=== PATIENT | male | born 1955 | race Caucasian/White ===

== ENCOUNTER 2017-12-17 15:16 | Outpatient (REF) | payer BC, SELFPAY ==
[2017-12-17 22:24] LABS: Cholesterol 209 mg/dL (50-200); HDL Cholesterol 52 mg/dL (40-60); LDL CHOLESTEROL 145 mg/dL (<100); Triglyceride 49 mg/dL (30-150)
[2017-12-17 22:28] LABS: Hemoglobin A1C 7.4 % (4.5-6.2)
== END 2017-12-17 15:17 ==
LOC: NCHCN 15:16
PROVIDERS: PCP Family Medicine; Visit Provider Family Medicine
DX: E11.65 Type 2 diabetes mellitus with hyperglycemia (principal); E78.5 Hyperlipidemia, unspecified
CPT/HCPCS: 80061; 83721; 83036

== ENCOUNTER 2018-07-20 10:25 | Outpatient (CLI) | payer BC, SELFPAY ==
[2018-07-20 16:39] LABS: CREATININE 1.08 mg/dL (0.70-1.30)
== END 2018-07-20 10:45 ==
PROVIDERS: PCP Family Medicine; Visit Provider Family Medicine
DX: E11.65 Type 2 diabetes mellitus with hyperglycemia (principal)
CPT/HCPCS: 36415; 82565

== ENCOUNTER 2018-07-24 01:37 | Outpatient (CLI) | payer BC, SELFPAY ==
[2018-07-24] MEDS: Omnipaque 350 MG/ML 100 ML BTL IV (14:13)
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
== END 2018-07-24 01:57 ==
PROVIDERS: PCP Family Medicine; Visit Provider Nurse Practitioner Family
DX: R51 Headache (principal); M54.2 Cervicalgia; Z87.828 Personal history of other (healed) physical injury and trauma
CPT/HCPCS: 70470; J3490

== ENCOUNTER 2018-08-20 08:30 | Outpatient (REF) | payer BC, SELFPAY ==
[2018-08-20 21:32] LABS: HCT 43.9 % (40.0-50.0); HGB 14.5 g/dL (13.5-17.5); Mean Corpuscular Hemoglobin 28.7 pg (27.0-33.0); Mean Corpuscular Volume 86.8 fL (80-95); Mean Platelet Volume 11.8 fL (8.0-11.0); Platelet Count 257 x1000/uL (130-400); RBC 5.06 m/cumm (4.50-6.00); RBC Distribution Width 13.3 % (11.8-14.1); White Blood Cell Count 9.61 k/cumm (4.4-10.8)
[2018-08-20 22:25] LABS: ALT 35 U/L (12-78); AST 18 U/L (15-37); Albumin 4.2 g/dL (3.4-5.0); Alkaline Phosphatase 103 U/L (46-116); Anion Gap 9.6 mmol/L (3-11); BUN 21 mg/dL (7-18); Bilirubin, Total 0.6 mg/dL (0.2-1.0); CO2 27.4 mmol/L (21.0-32.0); CREATININE 0.95 mg/dL (0.70-1.30); Calcium 8.9 mg/dL (8.5-10.1); Chloride 103 mmol/L (98-107); Glucose 167 mg/dL (70-100); Potassium 4.4 mmol/L (3.5-5.1); Sodium 140 mmol/L (136-145); TSH (W/Ref FT4) 2.09 uIU/mL (0.358-3.74); Total Protein 7.3 g/dL (6.4-8.2)
[2018-08-20 22:43] LABS: Cholesterol 235 mg/dL (50-200); HDL Cholesterol 54 mg/dL (40-60); LDL CHOLESTEROL 149 mg/dL (<100); Triglyceride 77 mg/dL (30-150)
[2018-08-20 23:03] LABS: Vitamin D 25 Total 7.8 ng/ml (30-100)
[2018-08-24 11:31] LABS: Testosterone, Total 243 ng/dL (240-950)
[2018-09-08 10:01] LABS: Rabies Antibody Endpoint 3.3 IU/mL
== END 2018-08-20 08:50 ==
LOC: NCHCN 08:30
PROVIDERS: PCP Family Medicine; Visit Provider Family Medicine
DX: E11.65 Type 2 diabetes mellitus with hyperglycemia (principal); I10 Essential (primary) hypertension; R53.83 Other fatigue; E66.9 Obesity, unspecified; M79.10 Myalgia, unspecified site; Z01.84 Encounter for antibody response examination
CPT/HCPCS: 80053; 80061; 82306; 83721; 84402; 84403; 85027; 86317; 84443

== ENCOUNTER 2018-09-22 12:03 | Outpatient (REF) | payer BC, SELFPAY ==
[2018-09-22 21:34] LABS: Hemoglobin A1C 7.6 % (4.5-6.2)
== END 2018-09-22 12:23 ==
LOC: LBN 12:03
PROVIDERS: PCP Family Medicine; Visit Provider Internal Medicine Endocrinology, Diabetes & Metabolism
DX: E11.65 Type 2 diabetes mellitus with hyperglycemia (principal); Z79.4 Long term (current) use of insulin
CPT/HCPCS: 83036

== ENCOUNTER 2018-10-12 11:46 | Outpatient (REF) | payer BC, SELFPAY ==
[2018-10-12 21:35] LABS: Vitamin D 25 Total 17.6 ng/ml (30-100)
[2018-10-12 21:45] LABS: Vitamin B12 387 pg/mL (193-986)
== END 2018-10-12 12:06 ==
LOC: NCHCN 11:46
PROVIDERS: PCP Family Medicine; Visit Provider Family Medicine
DX: R53.83 Other fatigue (principal); E55.9 Vitamin D deficiency, unspecified
CPT/HCPCS: 82306; 82607

== ENCOUNTER 2019-01-27 13:37 | Outpatient (REF) | payer BC, SELFPAY ==
[2019-01-27 22:30] LABS: Hemoglobin A1C 8.3 % (4.5-6.2)
[2019-01-27 23:01] LABS: Vitamin B12 562 pg/mL (193-986)
[2019-01-28 07:01] LABS: Vitamin D 25 Total 22.9 ng/ml (30-100)
== END 2019-01-27 13:57 ==
LOC: NCHCO 13:37
PROVIDERS: PCP Family Medicine; Visit Provider Family Medicine
DX: E53.8 Deficiency of other specified B group vitamins (principal); E55.9 Vitamin D deficiency, unspecified; E11.65 Type 2 diabetes mellitus with hyperglycemia
CPT/HCPCS: 82306; 82607; 83036

== ENCOUNTER 2019-02-26 08:57 | Outpatient (REF) | payer BC, SELFPAY ==
[2019-03-03 10:56] LABS: Testosterone, Free 5.54 ng/dL (3.67-13.9); Testosterone, Total 231 ng/dL (240-950)
== END 2019-02-26 09:17 ==
LOC: NCHCN 08:57
PROVIDERS: PCP Family Medicine; Visit Provider Family Medicine
DX: R53.83 Other fatigue (principal)
CPT/HCPCS: 84402; 84403

== ENCOUNTER 2019-03-16 09:27 | Outpatient (REF) | payer BC, SELFPAY ==
[2019-03-16 21:42] LABS: Hemoglobin A1C 8.8 % (4.5-6.2)
[2019-03-18 04:39] LABS: Vitamin D 25 Total 24.2 ng/ml (30-100)
[2019-03-19 14:49] LABS: Testosterone, Total 186 ng/dL (240-950)
== END 2019-03-16 09:47 ==
LOC: NCHCN 09:27
PROVIDERS: PCP Family Medicine; Visit Provider Family Medicine
DX: E11.65 Type 2 diabetes mellitus with hyperglycemia (principal); R53.83 Other fatigue; E29.1 Testicular hypofunction; E55.9 Vitamin D deficiency, unspecified
CPT/HCPCS: 82306; 84403; 83036

== ENCOUNTER 2019-06-15 08:40 | Outpatient (REF) | payer BC, SELFPAY ==
[2019-06-15 22:15] LABS: HCT 44.2 % (40.0-50.0); Mean Corp. HGB Concentration 33.9 g/dL (32.0-36.0); Mean Corpuscular Hemoglobin 28.7 pg (27.0-33.0); Mean Corpuscular Volume 84.5 fL (80-95); Mean Platelet Volume 11.5 fL (8.0-11.0); Platelet Count 280 x1000/uL (130-400); RBC 5.23 m/cumm (4.50-6.00); RBC Distribution Width 13.3 % (11.8-14.1); White Blood Cell Count 7.85 k/cumm (4.4-10.8)
[2019-06-15 22:29] LABS: ALT 33 U/L (16-63); AST 18 U/L (15-37); Albumin 3.9 g/dL (3.4-5.0); Alkaline Phosphatase 94 U/L (46-116); Anion Gap 9.6 mmol/L (3-11); BUN 18 mg/dL (7-18); Bilirubin, Total 0.6 mg/dL (0.2-1.0); CO2 26.4 mmol/L (21.0-32.0); Calculated LDL 139 mg/dL (<100); Chloride 107 mmol/L (98-107); Cholesterol 190 mg/dL (<200); Glucose 118 mg/dL (74-106); HDL Cholesterol 40 mg/dL (40-60); Potassium 4.2 mmol/L (3.5-5.1); Sodium 143 mmol/L (136-145); Total Protein 6.8 g/dL (6.4-8.2); Triglyceride 59 mg/dL (<150)
[2019-06-17 09:34] LABS: PSA, Screening 0.6 ng/mL (0.0-4.5)
[2019-06-18 08:17] LABS: Testosterone, Total 288 ng/dL (240-950)
== END 2019-06-15 09:00 ==
LOC: NCHCN 08:40
PROVIDERS: PCP Family Medicine; Visit Provider Family Medicine
DX: E11.65 Type 2 diabetes mellitus with hyperglycemia (principal); E78.5 Hyperlipidemia, unspecified; E29.1 Testicular hypofunction; R53.83 Other fatigue; M25.50 Pain in unspecified joint; Z12.5 Encounter for screening for malignant neoplasm of prostate
CPT/HCPCS: 80053; 80061; 84153; 84403; 85027

== ENCOUNTER 2019-07-01 12:15 | Outpatient (REF) | payer BC, SELFPAY ==
--- NOTE | 2019-07-01 10:00 | SKI_PTH ---
PATIENT: Dave Sims LOC: [facility] U#:[id number] AGE/SX: 64/M ROOM: RE07/01/[address]: Gayle Hinds : 1955 BED: DIS: 07/01/2019 SPEC #: [id number] RECD: 07/02/19 12:56 STATUS: JAISON KINCAID #: [id number] MARIE: 07/01/19 10:[address]: Gayle Hinds DEPT: Surgical Specimen RECD BY: Aissatou Sandoval Tissues: 1 - SKIN BIOPSY(SHAVE/PUNCH) Procedures: SKIN LEVEL 4 Comments: [id number]
== END 2019-07-01 12:35 ==
LOC: NCHCN 12:15
PROVIDERS: PCP Family Medicine; Visit Provider Family Medicine
DX: B07.9 Viral wart, unspecified (principal)
CPT/HCPCS: 88305

== ENCOUNTER 2019-09-06 14:43 | Outpatient (REF) | payer BC, SELFPAY ==
[2019-09-07 21:14] LABS: COVID-19 RT-PCR UVMMC Result Negative (Negative)
== END 2019-09-06 15:03 ==
LOC: NCHCN 14:43
PROVIDERS: PCP Family Medicine; Visit Provider Nurse Practitioner Family
DX: Z11.59 Encounter for screening for other viral diseases (principal)
CPT/HCPCS: U0003

== ENCOUNTER 2019-09-21 08:39 | Outpatient (REF) | payer BC, SELFPAY ==
[2019-09-21 21:02] LABS: Hemoglobin A1C 6.8 % (3.8-5.6)
[2019-09-21 21:44] LABS: Calculated LDL 164 mg/dL (<100); Cholesterol 231 mg/dL (<200); HDL Cholesterol 44 mg/dL (40-60); Triglyceride 119 mg/dL (<150)
[2019-09-23 11:03] LABS: Hepatitis C Ab w Rflx HCV PCR Negative (Negative)
[2019-09-23 11:17] LABS: HIV-1/2 Ag & Ab Screen Negative (Negative)
[2019-09-23 14:43] LABS: Vitamin D 25 Total 23.3 ng/ml (30-100)
[2019-09-25 08:25] LABS: Testosterone, Total 351 ng/dL (240-950)
[2019-10-07 11:02] LABS: Rabies Antibody Endpoint 2.5 IU/mL
== END 2019-09-21 08:59 ==
LOC: NCHCN 08:39
PROVIDERS: PCP Family Medicine; Visit Provider Family Medicine
DX: Z11.4 Encounter for screening for human immunodeficiency virus [HIV] (principal); E55.9 Vitamin D deficiency, unspecified; E11.65 Type 2 diabetes mellitus with hyperglycemia; Z20.3 Contact with and (suspected) exposure to rabies; E29.1 Testicular hypofunction; N41.9 Inflammatory disease of prostate, unspecified; E78.5 Hyperlipidemia, unspecified; L98.9 Disorder of the skin and subcutaneous tissue, unspecified
CPT/HCPCS: 80061; 82306; 84403; 86317; 86803; 87389; 83036

== ENCOUNTER 2019-10-21 05:09 | Outpatient (CLI) | payer BC, SELFPAY ==
--- NOTE | 2019-10-21 15:00 | NS.NUTBLAN_ITS ---
Dave is referred to Nutritional counseling for Obesity, HTN, HLD and Hx Uncontrolled DM2. He had recent sig beneficial weight loss adhering to Keto diet. He is currently 164% IBW w/ BMI 39.07 indicating morbid obesity. Dave has had some concerns about elevated FBG levels, increased insulin doses and is looking for more information on the Keto diet. Most recent A1C of 6.8 ( 10/01/19) was an improvement related to diet choices. He states that he is unable to do physical activities r/t knee and lower back issues for which he is getting tx. He was under the care of an hardness inspector and CDE at [facility] but became discouraged when insulin dose was increased. He is currently on 75 units Lantus and has been adjusting his novolog according to BG levels. This RD helped Dave take BG reading two hrs post prandial which was 154 ml/dl. He stated he had a tuna sandwich for lunch and glass of water. Intervention: Educated Dave on a review of CHO counting . Provided take home literature on menu choices and label reading. Reviewed risks and benefits of ketogenic diet particularly r/t potential for DKA. Discussed several options to help w/ diet choices including [employer]/cals phone conrado and DASH diet. Reviewed ideal BG levels and explained the concept of time in range. Discussed having a small snack at bedtime to avoid glycogen conversion during sleep to promote favorable FBG upon awakening. Recommended small amounts of CHO (< 60g) w/ pro at each meal and increase vegetable variety and intake. Provided food record and recommended he take BG levels TID. He is a good candidate for CGM as he stated he does not take his BG levels regularly. Monitor and Evaluation: Dave will return to [facility] for follow up appointment to review food record and BG hx on 18 November. Consulted with local CDE to validate his current insulin regimen which is appropriate at this time.
== END 2019-10-21 05:29 ==
PROVIDERS: PCP Family Medicine; Visit Provider Family Medicine
DX: E66.01 Morbid (severe) obesity due to excess calories (principal); E11.9 Type 2 diabetes mellitus without complications; Z79.4 Long term (current) use of insulin; I10 Essential (primary) hypertension; E78.5 Hyperlipidemia, unspecified; Z71.3 Dietary counseling and surveillance
CPT/HCPCS: 97802

== ENCOUNTER 2019-11-28 19:25 | Emergency (ER) | payer BC, SELFPAY ==
[2019-11-28] VITALS (20 sets, daily range): BP systolic 132–166; BP diastolic 62–87; PULSE 65–91; RESP 14–26; TEMP 36.8; O2SAT 94–96
[2019-11-28] MEDS: diphenhydrAMINE 50 MG/ML VIAL (19:32)
[2019-11-28] MEDS: methylPREDNISolone SUCC 125 MG VIAL (19:33)
[2019-11-28] MEDS: Ondansetron 4 MG/2 ML VIAL IVP (20:06)
[2019-11-28] MEDS: Normal Saline 1,000 ML 1000 ML IV (20:07)
[2019-11-28] MEDS: FAMOTIDINE 20 MG/50 ML BAG 100 MG (20:07)
--- NOTE | 2019-11-28 22:12 | W.ED.GENAD ---
Discharge Plan Disposition Patient Disposition: HOME Condition: Stable Discharge Details Chief Complaint: Allergic Clinical Impression: Allergic reaction to bee sting Primary Care Provider: Gayle Hinds ED Provider: Ezekiel Eugene Home Meds and New Rx's Prescriptions: New prednisone 20 mg tablet 60 mg PO DAILY 5 Days Qty: 15 RF: 0 epinephrine [EpiPen 2-Prem] 0.3 mg/0.3 mL auto-injector 0.3 mg IM ONCE Qty: 1 RF: 0 Continued Lantus U-100 Insulin 100 unit/mL Solution 80 unit SUBCUT DAILY RF: 0 insulin aspart U-100 [Novolog Flexpen U-100 Insulin] 100 unit/mL (3 mL) Insulin Pen 45 unit SUBCUT DAILY RF: 0 aspirin 81 mg Tablet,Chewable 81 mg PO DAILY RF: 0 Discharge Instructions Instructions: Insect Bite or Sting (ED), General Allergic Reaction (ED) Additional Instructions: Prednisone as directed. [id number] Pepcid and Benadryl as directed for the next 5 days. Please watch for new or worsening symptoms and return to the ER for any concerns. I do recommend you contact your primary care provider tomorrow for prompt outpatient reevaluation. I am providing you with a prescription for EpiPen, we discussed the appropriate use of an EpiPen and the importance of still seeking medical attention if you use the EpiPen. Medical Decision Making 64-year-old gentleman with history of diabetes, presents for evaluation status post bee sting to his left hand within the last hour. He does have hives but no signs of airway compromise, angioedema, etc. Will initiate IV therapy normal saline, Solu-Medrol, Pepcid, Benadryl. I do not believe that epinephrine is indicated at this time. I did discuss my plan with Dr. Torre. Patient was observed in the ER for over 3 hours. Each subsequent evaluation he reports feeling improvement. By the time he was discharged he had no rash to his legs, arms. He had a small area across his chest and most of it was on his back from initial presentation had resolved. Now only very mild hives-erythema. He was able to ambulate to the restroom multiple times. He tolerated p.o. intake. There was no evidence of decompensation. Discussed our options. I will provide steroid therapy prescription, he will take [id number] Pepcid and Benadryl. I will also give him a prescription for an EpiPen. We discussed how and when to use an EpiPen. Patient has no additional questions or concerns. Medical Records Medical records reviewed: Yes I reviewed the patient's medical records. HPI General Mode of arrival: ambulatory. Date/Time Provider Initiated Documentation: 11/28/19 19:29. Limitations to Documentation: no limitations. Information obtained by: patient. HPI Narrative: 64-year-old gentleman with a history of diabetes presents to the ER having been stung by a hornet roughly 1 hour ago on the left hand. He reports that within the next half an hour he began having itching body wide associated with a red raised rash across most of his body. He denies any difficulty speaking or breathing. He denies any swelling of his lips, tongue, throat. He does feel as though his lips are tingling. He has never had a reaction like this before. He denies any chest pain. He reports allergies to iodine, penicillins, shellfish. Never had a reaction of this to a hornet or bee sting in the past. He reports that his ears feel warm and tight. Related Data Home Medications Medication Instructions Recorded Confirmed Lantus U-100 Insulin 80 unit SUBCUT DAILY 11/28/19 11/28/19 aspirin 81 mg PO DAILY 11/28/19 11/28/19 epinephrine [EpiPen 2-Prem] 0.3 mg IM ONCE #1 each 11/28/19 insulin aspart U-100 [Novolog 45 unit SUBCUT DAILY 11/28/19 11/28/19 Flexpen U-100 Insulin] prednisone 60 mg PO DAILY 5 Days #15 tab 11/28/19 Previous Rx's Medication Instructions Recorded epinephrine [EpiPen 2-Prem] 0.3 mg IM ONCE #1 each 11/28/19 prednisone 60 mg PO DAILY 5 Days #15 tab 11/28/19 Allergies Allergy/AdvReac Type Severity Reaction Status Date / Time iodine Allergy Unverified 11/28/19 19:29 Penicillins Allergy Unverified 11/28/19 19:29 shellfish derived Allergy Unverified 11/28/19 19:29 General Stated Complaint: Allergic KAZ: 3 Review of Systems Constitutional Constitutional: Denies fever(s) and Denies weakness Eyes Eyes: Denies itchy eyes ENT Ears, Nose, Mouth, and Throat: Denies lip swelling, Denies throat swelling and Denies tongue swelling Cardiovascular Cardiovascular: Denies chest pain and Denies dyspnea Respiratory Respiratory: Denies cough, Denies dyspnea and Denies wheezing Gastrointestinal Gastrointestinal: Denies abdominal pain, Reports nausea and Denies vomiting Musculoskeletal Musculoskeletal: Denies back pain, Denies stiffness and Reports tingling Integumentary/Breasts Skin/Breast: Reports rash Neurologic Neurologic: Reports tingling and Denies weakness Allergic/Immunologic Allergic/Immunologic: Reports urticaria, Denies itchy eyes, Denies lip swelling, Denies throat swelling, Denies tongue swelling and Denies wheezing [facility] Social History Smoking/Tobacco Use Status: Never Alcohol Intake: current Alcohol Intake frequency: 3 or more drinks per day Drug use: Never Substance use type: does not use Do you feel safe at home: Yes Do you feel safe in your relationship?: Yes Exam Const General: cooperative, healthy appearing, comfortable and no acute distress Orientation: alert, awake and oriented x3 HENMT Head: normal to inspection, normocephalic and atraumatic Face and sinus: normal facial exam Mouth: oral mucosae normal and moist mucous membranes Throat: posterior oropharynx normal Eyes Conjunctivae: conjunctivae normal Sclera: sclerae normal Neck Neck: normal visual inspection, full ROM, trachea midline, supple and nontender Chest Chest: normal palpation of entire chest wall Resp Effort & Inspection: normal respiratory effort and able to speak in complete sentences Auscultation: clear to auscultation bilaterally Cardio Rate: regular rate Rhythm: regular rhythm GI Palpation: soft and nontender Back/Spine/Pelvis Back: No back tenderness Skin Other: Patchy hives over his entire body sparing the face. Concentration is greater across the torso, then the upper extremities, then the lower extremities. Neuro General: patient alert, patient awake, patient oriented x3, moves all extremities and no focal motor deficits Cranial Nerves: CN's II-XI intact bilaterally Cognition: normal cognition Speech: speech normal Gait: normal gait Motor: muscle tone normal throughout and strength 5/5 throughout Sensory Exam: no sensory deficits noted Extrem Other: Puncture-bee sting to left hand, no stinger in place. Neuro, vascular, tendon intact. Otherwise unremarkable Psych Appearance: grossly normal Mental Status: mental status grossly normal Course Vital Signs Vital signs: Vital Signs Temperature 36.8 C 11/28/19 19:28 Pulse 91 H 11/28/19 19:28 Respiratory Rate 26 H 11/28/19 19:28 Blood Pressure 166/87 H 11/28/19 19:28 Pulse Oximetry 94 L 11/28/19 19:28 Temperature 36.8 C 11/28/19 19:28 Temperature Source Skin 11/28/19 19:28 Pulse 66 11/28/19 20:32 Pulse 72 11/28/19 20:32 Respiratory Rate 22 11/28/19 20:32 Respiratory Effort Non-Labored 11/28/19 19:33 Respiratory Pattern Normal 11/28/19 19:33 Blood Pressure 140/62 11/28/19 20:17 Blood Pressure Mean 98 11/28/19 20:32 Blood Pressure Position Sitting 11/28/19 19:28 Pulse Oximetry 96 11/28/19 20:20 Oxygen Delivery Method Room Air 11/28/19 19:28 Oxygen Flow Rate 0 11/28/19 19:28 Pain Level 8 11/28/19 19:28
== END 2019-11-28 22:40 | disposition home or self-care (01) ==
PROVIDERS: Emergency Provider Physician Assistant; PCP Family Medicine
DX: T63.451A Toxic effect of venom of hornets, accidental (unintentional), initial encounter (principal); L50.0 Allergic urticaria; Z79.4 Long term (current) use of insulin; E11.9 Type 2 diabetes mellitus without complications
CPT/HCPCS: 96361; 96365; 96375; 99284; J1200; J2405; J2930

== ENCOUNTER 2019-12-04 13:15 | Emergency (ER) | payer BC, SELFPAY ==
[2019-12-04 13:22] VITALS: BP 147/70; PULSE 88; RESP 18; TEMP 36.4; O2SAT 96
--- NOTE | 2019-12-04 13:28 | ED.GENADUL_ITS ---
Discharge Plan Disposition Patient Disposition: HOME Condition: Stable Discharge Details Chief Complaint: Allergic Clinical Impression: Bee sting Primary Care Provider: Gayle Hinds ED Provider: Ezekiel Eugene Home Meds and New Rx's Prescriptions: Continued Lantus U-100 Insulin 100 unit/mL Solution 80 unit SUBCUT DAILY RF: 0 insulin aspart U-100 [Novolog Flexpen U-100 Insulin] 100 unit/mL (3 mL) Insulin Pen 45 unit SUBCUT DAILY RF: 0 aspirin 81 mg Tablet,Chewable 81 mg PO DAILY RF: 0 epinephrine [EpiPen 2-Prem] 0.3 mg/0.3 mL auto-injector 0.3 mg IM ONCE Qty: 1 RF: 0 Discontinued prednisone 20 mg tablet 60 mg PO DAILY RF: 0 Discharge Instructions Instructions: Insect Bite or Sting (ED) Additional Instructions: At this time it does not appear as though you are having a serious allergic reaction. Simply a local reaction to the finger at the site of the sting. No indication for additional steroid therapy. I do recommending resting, elevating, cool compresses every 2 hours for 20 minutes. You may take [id number]-zeo-[id number] Benadryl and Pepcid as directed for the next 24-48 hours. Please watch for new or worsening symptoms and return to the ER for any concerns. Discharge Data Discharge Date/Time-TO BE ENTERED AT DEPARTURE: 12/04/19 15:12 Medical Decision Making 64-year-old gentleman presents with a right index finger bee sting that occurred around 1215 today. He took 2 Benadryl and a single Pepcid. Reports localized discomfort but no systemic reaction whatsoever. He just finished a burst dose of steroids for a bee sting that occurred on 11-28-19. We discussed our options. He is a diabetic, was recently on steroids, I would like to avoid prolonged exposure if at all possible. Patient is agreeable to being observed in the ER and his symptoms are to worsen we will have to initiate further therapy, otherwise the Benadryl and Pepcid that he is already taken may be sufficient. Absolutely no symptoms of systemic reaction or angioedema Patient was observed in the ER for over 2 hours. Upon each subsequent reevaluation he reported no new or worsening symptoms. Mild local discomfort at the site of the sting otherwise denies body wide rash, numbness, tingling, weakness, chest pain, shortness of breath, lip, tongue, mouth swelling. After 2 hours in the ER he was requesting discharge, I do believe this to be perfectly reasonable at this time. He does have an EpiPen at home already prescribed to him. We will not extend his steroid therapy, but he will take [id number]-[id number] Benadryl and Pepcid. HPI General Mode of arrival: ambulatory . Date/Time Provider Initiated Documentation: 12/04/19 13:28 . Limitations to Documentation: no limitations . Information obtained by: patient . HPI Narrative: This is a 64-year-old gentleman with a history of diabetes presenting for a bee sting that occurred around 1215 today at the tip of his right index finger. He reports mild localized discomfort otherwise asymptomatic. Of note, he was seen in the ER 6 days ago for a bee sting and he had more significant symptoms at that time requiring IV fluid, Pepcid, Benadryl, steroids. He did not need epinephrine. He had finished his burst of steroids yesterday. He took 2 Benadryl and a single Pepcid as soon as he was stung today. He denies any headache, chest pain, shortness of breath, wheezing, swelling of his mouth, lips, tongue. He denies body wide rash. He denies any pruritus. He reports that he is coming to the ER today given his severe reaction earlier in the week. Related Data Home Medications Medication Instructions Recorded Confirmed Lantus U-100 Insulin 80 unit SUBCUT DAILY 11/28/19 12/04/19 aspirin 81 mg PO DAILY 11/28/19 12/04/19 epinephrine [EpiPen 2-Prem] 0.3 mg IM ONCE #1 each 11/28/19 12/04/19 insulin aspart U-100 [Novolog 45 unit SUBCUT DAILY 11/28/19 12/04/19 Flexpen U-100 Insulin] Previous Rx's Medication Instructions Recorded epinephrine [EpiPen 2-Prem] 0.3 mg IM ONCE #1 each 11/28/19 Allergies Allergy/AdvReac Type Severity Reaction Status Date / Time bee venom protein (honey bee) Allergy Unverified 12/04/19 13:29 iodine Allergy Unverified 11/28/19 19:29 Penicillins Allergy Unverified 11/28/19 19:29 shellfish derived Allergy Unverified 11/28/19 19:29 General Stated Complaint: Allergic KAZ: 3 Review of Systems Constitutional Constitutional: Denies fatigue, Denies headache(s) and Denies weakness Eyes Eyes: Denies itchy eyes ENT Ears, Nose, Mouth, and Throat: Denies headache(s) and Denies throat swelling Cardiovascular Cardiovascular: Denies chest pain and Denies dyspnea Respiratory Respiratory: Denies chest congestion, Denies dyspnea and Denies wheezing Gastrointestinal Gastrointestinal: Denies abdominal pain, Denies nausea and Denies vomiting Musculoskeletal Musculoskeletal: Denies arthralgias, Denies numbness and Denies tingling Integumentary/Breasts Skin/Breast: Denies rash Neurologic Neurologic: Denies headache(s), Denies numbness, Denies tingling and Denies weakness Endocrine Endocrine: Denies fatigue Allergic/Immunologic Allergic/Immunologic: Denies itchy eyes, Denies throat swelling and Denies wheezing [facility] Social History Smoking/Tobacco Use Status: Never Alcohol Intake: current Alcohol Intake frequency: 3 or more drinks per day Drug use: Never Substance use type: does not use Do you feel safe at home: Yes Do you feel safe in your relationship?: Yes Exam Const General: cooperative, healthy appearing, comfortable and no acute distress Orientation: alert, awake and oriented x3 HENMT Head: normal to inspection, normocephalic and atraumatic Face and sinus: normal facial exam Mouth: moist mucous membranes Throat: posterior oropharynx normal Eyes Conjunctivae: conjunctivae normal Sclera: sclerae normal Neck Neck: normal visual inspection, full ROM, trachea midline and supple Resp Effort & Inspection: normal respiratory effort and able to speak in complete sentences Auscultation: clear to auscultation bilaterally Cardio Rate: regular rate Rhythm: regular rhythm GI Palpation: soft and nontender Skin General skin exam: no rashes or lesions noted Neuro General: patient alert, patient awake, patient oriented x3, moves all extremities and no focal motor deficits Cranial Nerves: CN's II-XI intact bilaterally Cognition: normal cognition Speech: speech normal Gait: normal gait Motor: muscle tone normal throughout and strength 5/5 throughout Sensory Exam: no sensory deficits noted Extrem Left upper extremity: normal to inspection, full ROM and normal capillary refill Hand/finger images: 1. Puncture wound without notable stinger. Mild tenderness, swelling, erythema. Full range of motion. Neuro, vascular, tendon intact Psych Appearance: grossly normal Mental Status: mental status grossly normal Course Vital Signs Vital signs: Vital Signs Temperature 36.4 C L 12/04/19 13:22 Pulse 88 12/04/19 13:22 Respiratory Rate 18 12/04/19 13:22 Blood Pressure 147/70 H 12/04/19 13:22 Pulse Oximetry 96 12/04/19 13:22 Temperature 36.4 C L 12/04/19 13:22 Temperature Source Temporal Artery Scan 12/04/19 13:22 Pulse 88 12/04/19 13:22 Respiratory Rate 18 12/04/19 13:22 Blood Pressure 147/70 H 12/04/19 13:22 Blood Pressure Position Supine 12/04/19 13:22 Pulse Oximetry 96 12/04/19 13:22 Oxygen Delivery Method Room Air 12/04/19 13:22 Oxygen Flow Rate 0 12/04/19 13:22
[2019-12-04 14:28] VITALS: BP 145/52; PULSE 70; RESP 18; TEMP 36.4; O2SAT 96
[2019-12-04 15:10] VITALS: BP 139/85; PULSE 68; RESP 18; O2SAT 94
== END 2019-12-04 15:12 | disposition home or self-care (01) ==
PROVIDERS: Emergency Provider Physician Assistant; PCP Family Medicine
DX: T63.441A Toxic effect of venom of bees, accidental (unintentional), initial encounter (principal); M79.644 Pain in right finger(s); E11.9 Type 2 diabetes mellitus without complications; Z79.4 Long term (current) use of insulin
CPT/HCPCS: 99282; 99283

== ENCOUNTER 2019-12-14 08:29 | Outpatient (REF) | payer BC, SELFPAY ==
[2019-12-14 21:39] LABS: HCT 44.3 % (40.0-50.0); HGB 14.4 g/dL (13.5-17.5); MCH 28.7 pg (27.0-33.0); MCHC 32.5 % (32.0-36.0); MCV 88.4 fL (80-95); MPV 12.1 fL (8.0-11.0); Platelet Count 232 10^3/uL (130-400); RBC 5.01 10^6/uL (4.36-5.78); RDW 12.8 % (11.8-14.1); RDW-SD 41.6 fL; WBC 9.53 10^3/uL (4.4-10.8)
[2019-12-14 22:19] LABS: ALT 30 U/L (16-63); AST 15 U/L (15-37); Albumin 3.6 g/dL (3.4-5.0); Alkaline Phosphatase 96 U/L (46-116); Anion Gap 9.5 mmol/L (3-11); BUN 18 mg/dL (7-18); Bilirubin, Total 0.5 mg/dL (0.2-1.0); CO2 26.5 mmol/L (21.0-32.0); CREATININE 0.79 mg/dL (0.70-1.30); Calcium 8.8 mg/dL (8.5-10.1); Calculated LDL 170 mg/dL (<100); Chloride 106 mmol/L (98-107); Cholesterol 240 mg/dL (<200); Glucose 182 mg/dL (74-106); HDL Cholesterol 46 mg/dL (40-60); Potassium 4.4 mmol/L (3.5-5.1); Sodium 142 mmol/L (136-145); Total Protein 6.5 g/dL (6.4-8.2); Triglyceride 121 mg/dL (<150)
[2019-12-14 22:24] LABS: Hemoglobin A1C 7.9 % (3.8-5.6)
[2019-12-16 09:20] LABS: PSA, Screening 0.6 ng/mL (0.0-4.5)
[2019-12-19 16:21] LABS: Testosterone, Total 237 ng/dL (240-950)
== END 2019-12-14 08:49 ==
LOC: NCHCN 08:29
PROVIDERS: PCP Family Medicine; Visit Provider Family Medicine
DX: E11.9 Type 2 diabetes mellitus without complications (principal); E53.8 Deficiency of other specified B group vitamins; R53.83 Other fatigue; E78.5 Hyperlipidemia, unspecified; E55.9 Vitamin D deficiency, unspecified; E29.1 Testicular hypofunction; Z12.5 Encounter for screening for malignant neoplasm of prostate; I10 Essential (primary) hypertension
CPT/HCPCS: 80053; 80061; 84153; 84403; 85027; 83036

== ENCOUNTER 2019-12-21 16:51 | Outpatient (REF) | payer BC, SELFPAY ==
[2019-12-23 04:50] LABS: Vitamin D 25 Total 21.8 ng/ml (30-100)
== END 2019-12-21 17:11 ==
LOC: NCHCN 16:51
PROVIDERS: PCP Family Medicine; Visit Provider Family Medicine
DX: F32.9 Major depressive disorder, single episode, unspecified (principal); E55.9 Vitamin D deficiency, unspecified
CPT/HCPCS: 82306

== ENCOUNTER 2020-04-19 09:23 | Outpatient (REF) | payer BC, SELFPAY ==
[2020-04-19 22:45] LABS: Hemoglobin A1C 7.9 % (<5.7)
[2020-04-19 22:59] LABS: Calculated LDL 163 mg/dL (<100); Cholesterol 222 mg/dL (<200); HDL Cholesterol 46 mg/dL (40-60); Triglyceride 69 mg/dL (<150)
[2020-04-20 05:05] LABS: Vitamin D 25 Total 63.3 ng/ml (30-100)
[2020-04-24 15:13] LABS: Testosterone, Free 24.2 ng/dL (3.67-13.9); Testosterone, Total 655 ng/dL (240-950)
== END 2020-04-19 09:43 ==
LOC: NCHCN 09:23
PROVIDERS: PCP Family Medicine; Visit Provider Family Medicine
DX: E78.5 Hyperlipidemia, unspecified (principal); E11.9 Type 2 diabetes mellitus without complications
CPT/HCPCS: 80061; 82306; 84402; 84403; 83036

== ENCOUNTER 2020-08-31 17:02 | Outpatient (REF) | payer BC, SELFPAY ==
[2020-08-31 21:30] LABS: COMMENT (LAB VIEW ONLY) 47.65 mg/dL; Microalb ug/mg Crea 72.2 ug/mg Cr
== END 2020-08-31 17:03 | disposition home or self-care (01) ==
LOC: NCHCN 17:02
PROVIDERS: PCP Family Medicine; Visit Provider Family Medicine
DX: E11.65 Type 2 diabetes mellitus with hyperglycemia (principal)
CPT/HCPCS: 82043; 82570

== ENCOUNTER 2020-10-03 15:26 | Outpatient (CLI) | payer BC, SELFPAY ==
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
== END 2020-10-03 15:46 ==
PROVIDERS: PCP Family Medicine; Visit Provider Family Medicine
DX: M54.2 Cervicalgia (principal); R51.9 Headache, unspecified
CPT/HCPCS: 72050

== ENCOUNTER 2020-11-17 09:49 | Day surgery (SDC) | payer BC, SELFPAY ==
[2020-11-17 10:10] VITALS: BP 158/88; PULSE 74; RESP 16; TEMP 36.8; O2SAT 99
[2020-11-17] MEDS: Tropicam./Phenyleph. (1/2.5%) 5 ML BTL OS ×3 (10:31→10:41)
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
[2020-11-17 11:57] VITALS: BMI 40.1
[2020-11-17] MEDS: Balanced Salt Soln.-PLUS 500 ML BAG (12:36)
[2020-11-17] MEDS: Tetracaine 0.5% 4 ML BTL OS (12:36)
[2020-11-17] MEDS: Duovisc Viscoelastic System EACH 1 EACH (12:37)
[2020-11-17] MEDS: Lidocaine 1% Pres-Free 5 ML VIAL (12:37)
[2020-11-17] MEDS: Lidocaine 2% Jelly 6 ML SYR (12:38)
[2020-11-17] MEDS: Povidone-Iodine Ophth 30 ML BTL (12:39)
[2020-11-17 12:51] VITALS: BP 172/100; PULSE 75; RESP 16; TEMP 36.7; O2SAT 98
--- NOTE | 2020-11-17 12:52 | W.PM.DSUDISC ---
Discharge Plan Disposition Patient Disposition: HOME Condition: Good Discharge Details Attending Provider: Moris Raman Primary Care Provider: Gayle Hinds Home Meds and New Rx's Prescriptions: No Action clotrimazole-betamethasone [Lotrisone] 1-0.05 % Cream 1 applic TOPICAL BID PRNRF: 0 metoprolol tartrate 50 mg tablet 50 mg PO BID RF: 0 testosterone cypionate 200 mg/mL oil 50 mg IM DIRECTED RF: 0 albuterol sulfate 90 mcg/actuation HFA aerosol inhaler 2 puff INHALATION DIRECTED RF: 0 Levemir FlexTouch U-100 Insuln 100 unit/mL (3 mL) insulin pen 96 unit SUBCUT BID RF: 0 Trulicity 1.5 mg/0.5 mL pen injector 1.5 mg SUBCUT DIRECTED RF: 0 ergocalciferol (vitamin D2) 1,250 mcg (50,000 unit) capsule RF: 0 insulin aspart U-100 [Novolog Flexpen U-100 Insulin] 100 unit/mL (3 mL) Insulin Pen 45 unit SUBCUT DIRECTED RF: 0 aspirin 81 mg Tablet,Chewable 81 mg PO DAILY RF: 0 epinephrine [EpiPen 2-Prem] 0.3 mg/0.3 mL auto-injector 0.3 mg IM ONCE Qty: 1 RF: 0 Discharge Instructions Stand Alone Forms: Post-op Topical Cataract, Press Ganey (DSU) Discharge Orders Discharge Orders: Discharge Order (Routine); Ordered 11/17/20 Ordered By: Moris Raman DS: Diagnosis Discharge Diagnosis (1) Posterior subcapsular age-related cataract of left eye: Status: Resolved (2) Cortical cataract of left eye: Status: Resolved (3) Nuclear sclerotic cataract of left eye: Status: Resolved
--- NOTE | 2020-11-17 12:54 | ROE_ITS ---
Date of service: 11/17/20 Time of Service: 12:54 Operative Note Operative Note DATE OF PROCEDURE: 11/17/20 PRE-OP DIAGNOSIS: Nuclear/cortical/posterior subcapsular cataract, left eye POST-OP DIAGNOSIS: same PROCEDURE: Cataract extraction using phacoemulsification with intraocular lens implant, left eye SURGEON: Moris Raman ANESTHESIA TYPE: Local By Surgeon and MAC Refer to Anesthesia Record PATHOLOGY: none sent COMPLICATIONS: None Patient was transported to: same day Patient's condition: stable Implants: Carlo and Carlo / [employer] Tecnis [id number] Indications: Progressive decreased vision due to cataract, left eye, with poor red reflex Procedure Description: CATARACT SURGERY OPERATIVE REPORT PREOPERATIVE DIAGNOSIS: 1. Nuclear/cortical/posterior subcapsular cataract, left eye POSTOPERATIVE DIAGNOSIS: Same OPERATION: 1. Cataract extraction using phacoemulsification with posterior chamber intraocular lens implant, left eye. IOL: IOL Bonding Equipment Operator/Model: Carlo & Carlo / MARY Tecnis [id number] IOL Power: + 22.5 diopters IOL Serial Number: [id number] Optic Diameter: 6.0 mm Haptic/Overall Diameter: 13.0 mm PHACO INFO: Corona Naviswissurion Vision System with OZil and Active Fluidics Cumulative Dispersed Energy (CDE): 6.86 seconds SURGEON: Moris Raman MD, LJ ANESTHESIA: Monitored A [facility] (MAC), with local sub-tenon's anesthetic infiltration COMPLICATIONS: None SPECIMENS: None INDICATIONS FOR PROCEDURE: The patient is a 65-year-old gentleman with history of diminished visual acuity in both eyes secondary to the development of bilateral nuclear/cortical/posterior subcapsular cataract. He has become increasingly symptomatic and desires cataract surgery and attempt to improve and maximize his vision. PROCEDURE: The correct surgical eye was identified and marked as the left eye and the pupil was dilated in the preoperative area using mydriatics and cycloplegics. The dilated pupil size was 7.0 mm. The patient was brought to the operating room where cardiopulmonary monitoring was instituted and surgical time-out was performed, confirming the correct operative eye and IOL power. Topical anesthesia was administered and ophthalmic povidone-iodine 5% was instilled into the conjunctival fornices. Lidocaine gel was applied to the cornea and the melba-ocular area was prepped with Betadine 10% solution and draped in the usual sterile fashion for intraocular surgery, including an aperture drape. A Tegaderm transparent film dressing was cut in half and used to cover the lashes and lid margins. Care was taken to sequester the lashes and lid margins under the Tegaderm dressing. A lid speculum was placed between the lids of the operative eye and the Jaelyn-Juany operating microscope was maneuvered into position. Chris scissors were then used to make a conjunctival buttonhole approximately 6mm posterior to the limbus in the inferonasal quadrant. Blunt dissection was carried out to expose bare sclera, and a blunt-tipped sub-tenon?s anesthesia cannula was introduced and passed posteriorly along the globe where non- preserved plain lidocaine was injected into posterior sub-Tenon?s space. A sideport knife was used to make a paracentesis port superiorly/superiortemporally. Intraocular phenylephrine/lidocaine was injected int the anterior chamber.. Air was then injected into the anterior chamber, followed by Vision Blue, which was painted over the anterior capsule and then irrigated out using BSS. The anterior chamber was filled with viscoelastic. A 2.4mm keratome knife was used to create a half-thickness groove at the limbus and then to construct a three-plane near-clear corneal tunnel extending 2.0mm into clear cornea at the 3:00 position. A flap was raised on the anterior capsule and capsulorhexis forceps were used to complete a continuous curvilinear capsulorhexis of 5.0 mm. Balanced salt solution was then used to perform cortical cleaving hydrodissection and nuclear hydrodelineation until the lens could be freely rotated within the capsular bag. The lens nucleus was then disassembled and removed within the capsular bag and iris plane using phacoemulsification. Residual cortical material was removed using the 45-degree angled silicone I/A tip with 0.3mm port. The posterior capsule was carefully polished to remove as much residual lens epithelial cells as safely possible. The capsular bag was then inflated and the anterior chamber deepened with viscoelastic. The lens implant described above was inserted into the capsular bag using the MARY [place] Injector. A Kuglen hook was used to dial the IOL into position. Residual viscoelastic was then removed first from posterior to the IOL, then from the anterior chamber using the I/A handpiece. The lens implant was noted to center nicely within the capsular bag. The incisions were stromally hydrated, and the anterior chamber was reformed using BSS. Then 0.5cc of moxifloxacin 1.0mg/ml were injected into the capsular bag and anterior chamber. The incisions were checked with a Weck spear and found to be secure. Several drops of ophthalmic povidone-iodine 5% were then applied to the eye followed by two drops of Imprimis combination prednisolone/moxifloxacin/nepafenac solution. The drapes were removed and a clear plastic protective eye shield was placed over the eye. The patient was then returned to Same Day Surgery in stable condition.
--- NOTE | 2020-11-17 13:02 | W.ANESPOSTOP ---
Postoperative Evaluation Date, Time and Location Date Performed: 11/17/20 Time Performed: 13:34 Patient Location: Day Surgery Unit Vital Signs Most Recent Imported Vital Signs: Most Recent Vital Signs Temp Pulse Resp BP Pulse Ox 36.8 C 74 16 158/88 H 99 11/17/20 10:10 11/17/20 10:10 11/17/20 10:10 11/17/20 10:10 11/17/20 10:10 Most Recent Manually Entered Vital Signs: Adult Blood Pressure: 172/100 Heart Rate: 75 Respirations: 16 Oxygen Saturation (%): 98 Temperature (C): 36.7 C Pain Score (0-10 Scale): 0 Pain Score Most Recent Pain Score: Most Recent Pain Score Pain Level 0 11/17/20 10:10 Assessment Mental Status: Awake (Alert & Oriented to Patient Baseline) Airway and Respiratory Function: Patent airway with normal (patient baseline) respiratory exam Cardiovascular Function: Hemodynamically Stable Hydration Status: Adequately Hydrated Nausea & Vomiting: No Nausea or Vomiting Pain: Pt. Denies Any Pain Peripheral Nerve Block: Patient did not receive a nerve block Postoperative Comments:: Pt complaining of numbness on left side of face. On examination his numbness is mainly within V1 distribution. He has no facial drop and speech is clear. His only complaint is that his face is numb. Discussion had with surgeon. Likely related to local anesthesia used for procedure. Pt instructed that if it progresses, or if he has any concerns that he should immediately seek medical attention.
[2020-11-17 13:15] VITALS: BP 173/95; PULSE 61; RESP 16; TEMP 36.9; O2SAT 97
[2020-11-17 13:20] VITALS: BP 172/100; PULSE 75; RESP 16; TEMPC 36.7; O2SAT 98
== END 2020-11-17 13:25 | disposition home or self-care (01) ==
PROVIDERS: PCP Family Medicine; Visit Provider Ophthalmology
PROC: (CPT 66984; principal; 2020-11-17 12:30)
DX: H25.042 Posterior subcapsular polar age-related cataract, left eye (principal); E11.40 Type 2 diabetes mellitus with diabetic neuropathy, unspecified; E66.01 Morbid (severe) obesity due to excess calories; I10 Essential (primary) hypertension
CPT/HCPCS: 66984; V2632

== ENCOUNTER 2020-11-20 09:37 | Day surgery (SDC) | payer BC, SELFPAY ==
--- NOTE | 2020-11-20 10:38 | ANES_ITS ---
Date of service: 11/20/20 Time of Service: 09:54 Anesthesia Note Report Anesthesia Note: I met patient to day in [facility]. The patient had a bit of an aberrant course last visit with partial facial numbness from his ocular block and pain in his arm from the blood pressure cuff. Unreported to our department until today; the patient had experienced a pop in his right arm on friday during his postoperative blood pressure. He did not report this at the time because he was concerned about the numbness in his face and just really wanted to go home. The patient did report an abnormal lump in his bicep to Dr. Raman on his appointment. Dr. Raman assessed it at the time and, per Dr. Raman, did advise the patient to seek care at the Emergency Room at that time. The patient did not want to seek emergency care due to concern of delaying his second cataract surgery and need to resume work. I assessed the patient today. Dr. Raman described the lump as feeling like a hematoma. I did not appreciate any ecchymosis, or visible deformity on obse rvation, arms bilaterally even with good tone. Patient reports full ROM with extremities. I palpated the location, lateral aspect of the right biceps and over the distal body of the biceps and there is a lump present with some heat. Absolutely different from his left. Tendon feels intact. Equal strength in flexion, extension, and donkey doctor. Patient reported more pain in flexion. Patient reports numbness and pain down forearm and indicates radial distribution, specifically to thumb. Dr. Raman at bedside to assess and reports feels larger than on friday. Especially due to the paresthesia in a specific nerve distribution I was concerned and recommended the patient postpone his elective surgery. The patient wanted his surgery and we discussed the risks. Due to concerns related to potential for long-term damage the patient did acquiesce to go to the Emergency Department. He is concerned about payment for the visit due to his association with the lump to his Friday visit. I discussed this with DSU and OR charge, they were to make nurse linen supervisor aware. I walked to the ER and gave a handoff to the providers there. Patient rescheduled tentatively to Friday for his cataract.
== END 2020-11-20 09:38 | disposition home or self-care (01) ==
LOC: SUR 09:38
PROVIDERS: PCP Family Medicine; Visit Provider Ophthalmology
DX: H26.9 Unspecified cataract (principal); Z53.09 Procedure and treatment not carried out because of other contraindication; R20.2 Paresthesia of skin; M79.601 Pain in right arm

== ENCOUNTER 2020-11-20 10:26 | Emergency (ER) | payer BC, SELFPAY ==
[2020-11-20 10:30] VITALS: BP 177/87; PULSE 67; RESP 16; TEMP 36.9; O2SAT 97
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
--- NOTE | 2020-11-20 10:45 | DI.US_ITS ---
Exam(s) US UPPER EXTREMITY VENOUS RT EXAM: US UPPER EXTREMITY VENOUS RT CLINICAL HISTORY: Right bicep pain and swelling TECHNIQUE: GRAYSCALE, COLOR, DOPPLER IMAGING OF THE VENOUS SYSTEM OF THE UPPER EXTREMITY-RIGHT COMPARISON: US RIGHT EXTREMITY ULTRASOUND from 05/27/2016 FINDINGS: Basilic vein: Patent. Normal color-flow and normal compression and augmentation properties. Brachial vein(s):Patent. Normal color flow. Normal compression and augmentation properties. Cephalic vein:Patent. Normal color flow. Normal compression and augmentation properties. Axillary vein: Patent. Normal color flow. Normal compression and augmentation properties. Visualized subclavian vein: Patent. No obvious intraluminal thrombus. IMPRESSION: 1. No evidence of venous thrombosis in the right upper extremity. 2. Incidentally noted is a area of abnormal density in the area of concern which may be a tendon rup ture. If clinically indicated follow-up MRI can be performed. DATA REPOSITORY:
[2020-11-20 12:48] VITALS: BP 168/90; PULSE 61; RESP 18; TEMP 36.6; O2SAT 97
== END 2020-11-20 13:22 | disposition home or self-care (01) ==
PROVIDERS: Emergency Provider Physician Assistant; PCP Family Medicine
DX: S46.211A Strain of muscle, fascia and tendon of other parts of biceps, right arm, initial encounter (principal); Y84.8 Other medical procedures as the cause of abnormal reaction of the patient, or of later complication, without mention of misadventure at the time of the procedure
CPT/HCPCS: 36416; 82962; 99284; 93971; 99283

== ENCOUNTER 2020-11-24 06:34 | Day surgery (SDC) | payer BC, SELFPAY ==
[2020-11-24 06:30] VITALS: BP 188/91; PULSE 69; RESP 18; TEMP 36.2; O2SAT 97
[2020-11-24] MEDS: Tropicam./Phenyleph. (1/2.5%) 5 ML BTL OD ×3 (07:01→07:08)
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
[2020-11-24 07:21] VITALS: BMI 39.8
[2020-11-24] MEDS: Balanced Salt Soln.-PLUS 500 ML BAG (07:49)
[2020-11-24] MEDS: Lidocaine 1% Pres-Free 5 ML VIAL (07:50)
[2020-11-24] MEDS: Lidocaine 2% Jelly 6 ML SYR (07:51)
[2020-11-24] MEDS: Povidone-Iodine Ophth 30 ML BTL (07:53)
[2020-11-24] MEDS: Duovisc Viscoelastic System EACH 1 EACH (07:53)
[2020-11-24] MEDS: Trypan Blue 0.06% 0.5 ML SYR (07:54)
[2020-11-24] MEDS: Tetracaine 0.5% 4 ML BTL OD (07:59)
--- NOTE | 2020-11-24 08:12 | W.PM.DSUDISC ---
Discharge Plan Disposition Patient Disposition: HOME Condition: Good Discharge Details Attending Provider: Moris Raman Primary Care Provider: Gayle Hinds Home Meds and New Rx's Prescriptions: No Action clotrimazole-betamethasone 1-0.05 % Cream 1 applic TOPICAL BID PRNRF: 0 metoprolol tartrate 50 mg tablet 75 mg PO BID RF: 0 testosterone cypionate 200 mg/mL oil 50 mg IM DIRECTED RF: 0 albuterol sulfate 90 mcg/actuation HFA aerosol inhaler 2 puff INHALATION DIRECTED RF: 0 Levemir FlexTouch U-100 Insuln 100 unit/mL (3 mL) insulin pen 92 unit SUBCUT BID RF: 0 Trulicity 1.5 mg/0.5 mL pen injector 1.5 mg SUBCUT DIRECTED RF: 0 ergocalciferol (vitamin D2) 1,250 mcg (50,000 unit) capsule 1,250 mcg PO RF: 0 insulin aspart U-100 [Novolog Flexpen U-100 Insulin] 100 unit/mL (3 mL) Insulin Pen 45 unit SUBCUT DIRECTED RF: 0 aspirin 81 mg Tablet,Chewable 81 mg PO DAILY RF: 0 epinephrine [EpiPen 2-Prem] 0.3 mg/0.3 mL auto-injector 0.3 mg IM ONCE Qty: 1 RF: 0 anastrozole 1 mg tablet See Rx Instructions .ROUTE .COMPLEX RF: 0 Discharge Instructions Stand Alone Forms: Post-op Topical Cataract, Wesly Jenkins (DSU) Discharge Orders Discharge Orders: Discharge Order (Routine); Ordered 11/24/20 Ordered By: Moris Raman DS: Diagnosis Discharge Diagnosis (1) Nuclear sclerotic cataract of right eye: Status: Resolved (2) Cortical cataract of right eye: Status: Resolved
--- NOTE | 2020-11-24 08:13 | ROE_ITS ---
Date of service: 11/24/20 Time of Service: 08:13 Operative Note Operative Note DATE OF PROCEDURE: 11/24/20 PRE-OP DIAGNOSIS: Nuclear/cortical cataract, right eye Poor red reflex, right eye secondary to cataract POST-OP DIAGNOSIS: same PROCEDURE: Cataract extraction using phacoemulsification with intraocular lens implantation, right eye, using capsular staining with Vision Blue SURGEON: Moris Raman ANESTHESIA TYPE: Local By Surgeon and MAC Refer to Anesthesia Record PATHOLOGY: none sent COMPLICATIONS: None Patient was transported to: same day Patient's condition: stable Implants: Carlo and Carlo / [employer] Tecnis [id number] Indications: Progressive visual loss due to cataract, right eye Procedure Description: CATARACT SURGERY OPERATIVE REPORT PREOPERATIVE DIAGNOSIS: 1. Nuclear/cortical cataract, right eye 2. Poor red reflex secondary to #1 POSTOPERATIVE DIAGNOSIS: Same OPERATION: 1. Cataract extraction using phacoemulsification with posterior chamber intraocular lens implant, right eye. 2. Capsular staining with Vision Blue IOL: IOL Pathology Laboratory Director/Model: Carlo & Carlo / MARY Tecnis [id number] IOL Power: + 21.0 diopters IOL Serial Number: [id number] Optic Diameter: 6.0mm Haptic/Overall Diameter: 13.0mm PHACO INFO: Corona Centurion Vision System with OZil and Active Fluidics Cumulative Dispersed Energy (CDE): 7.01 seconds SURGEON: Moris Raman MD, LJ ANESTHESIA: Monitored Anesthesia Care (MAC), with local sub-tenon's anesthetic infiltration COMPLICATIONS: None SPECIMENS: None INDICATIONS FOR PROCEDURE: The patient is a 65-year-old gentleman with history of diminished visual acuity in both eyes secondary to the development of bilateral cataract, left eye worse than right. He has already undergone cataract surgery in the left eye and postoperatively has uncorrected visual acuity of 20/40, he is slightly myopic at -0.75 diopters. He now presents for cataract surgery in the right eye. PROCEDURE: The correct surgical eye was identified and marked as the right eye and the pupil was dilated in the preoperative area using mydriatics and cycloplegics. The dilated pupil size was 6.5 mm. He elected to proceed without oral sedation. The patient was brought to the operating room where cardio pulmonary monitoring was instituted and surgical time-out was performed, confirming the correct operative eye and IOL power. Topical anesthesia was administered and ophthalmic povidone-iodine 5% was instilled into the conjunctival fornices. Lidocaine gel was applied to the cornea and the melba-ocular area was prepped with Betadine 10% solution and draped in the usual sterile fashion for intraocular surgery, including an aperture drape. A Tegaderm transparent film dressing was cut in half and used to cover the lashes and lid margins. Care was taken to sequester the lashes and lid margins under the Tegaderm dressing. A lid speculum was placed between the lids of the operative eye and the Jaelyn-Juany operating microscope was maneuvered into position. Chris scissors were then used to make a conjunctival buttonhole approximately 6mm posterior to the limbus in the inferonasal quadrant. Blunt dissection was carried out to expose bare sclera, and a blunt-tipped sub-tenon?s anesthesia cannula was introduced and passed posteriorly along the globe where non- preserved plain lidocaine was injected into posterior sub-Tenon?s space. A sideport knife was used to make a paracentesis port inferotemporally. Intraocular phenylephrine/lidocaine was injected into the anterior chamber. Air was injected into the anterior chamber, followed by Vision Blue, which was painted over the anterior capsule and then irrigated out with BSS. The anterior chamber was filled with viscoelastic. A 2.4mm keratome knife was used to create a half-thickness groove at the limbus and then to construct a three-plane near- clear corneal tunnel extending 2.0mm into clear cornea superiortemporally. A flap was raised on the anterior capsule and capsulorhexis forceps were used to complete a continuous curvilinear capsulorhexis of 5.0 mm. Balanced salt solution was then used to perform cortical cleaving hydrodissection and nuclear hydrodelineation until the lens could be freely rotated within the capsular bag. The lens nucleus was then disassembled and removed within the capsular bag and iris plane using phacoemulsification. Residual cortical material was removed using the I/A handpiece. The posterior capsule was carefully polished to remove as much residual lens epithelial cells as safely possible. The capsular bag was then inflated and the anterior chamber deepened with viscoelastic. The lens implant described above was inserted into the capsular bag using the MARY [place] Injector. A Kuglen hook was used to dial the IOL into position. Residual viscoelastic was then removed first from posterior to the IOL, then from the anterior chamber using the I/A handpiece. The lens implant was noted to center nicely within the capsular bag. The incisions were stromally hydrated, and the anterior chamber was reformed using BSS. Then 0.5cc of moxifloxacin 1.0mg/ml were injected into the capsular bag and anterior chamber. The incisions were checked with a Weck spear and found to be secure. Several drops of ophthalmic povidone-iodine 5% were then applied to the eye followed by two drops of Imprimis combination prednisolone/moxifloxacin/nepafenac solution. The drapes were removed and a clear plastic protective eye shield was placed over the eye. The patient was then returned to Same Day Surgery in stable condition.
[2020-11-24 08:15] VITALS: BP 175/97; PULSE 69; RESP 18; TEMP 36.4; O2SAT 96
--- NOTE | 2020-11-24 08:36 | W.ANESPOSTOP ---
Postoperative Evaluation Date, Time and Location Date Performed: 11/24/20 Time Performed: 08:36 Patient Location: Day Surgery Unit Vital Signs Most Recent Imported Vital Signs: Most Recent Vital Signs Temp Pulse Resp BP Pulse Ox 36.2 C L 69 18 188/91 H 97 11/24/20 06:30 11/24/20 06:30 11/24/20 06:30 11/24/20 06:30 11/24/20 06:30 Assessment Mental Status: Awake (Alert & Oriented to Patient Baseline) Airway and Respiratory Function: Patent airway with normal (patient baseline) respiratory exam Cardiovascular Function: Hemodynamically Stable Hydration Status: Adequately Hydrated Nausea & Vomiting: No Nausea or Vomiting Pain: Pt. Denies Any Pain Postoperative Comments:: Patient plans to take blood pressure medication when he returns home.
--- NOTE | 2020-11-24 09:13 | W.ANESPOSTOP ---
Postoperative Evaluation Date, Time and Location Date Performed: 11/24/20 Time Performed: 08:20 Patient Location: Day Surgery Unit Vital Signs Most Recent Imported Vital Signs: Most Recent Vital Signs Temp Pulse Resp BP Pulse Ox 36.4 C L 69 18 175/97 H 96 11/24/20 08:15 11/24/20 08:15 11/24/20 08:15 11/24/20 08:15 11/24/20 08:15 Assessment Mental Status: Awake (Alert & Oriented to Patient Baseline) Airway and Respiratory Function: Patent airway with normal (patient baseline) respiratory exam Cardiovascular Function: Hemodynamically Stable Hydration Status: Adequately Hydrated Nausea & Vomiting: No Nausea or Vomiting Pain: Pt. Denies Any Pain Peripheral Nerve Block: Patient did not receive a nerve block Postoperative Comments:: Patient will take blood pressure meds when returns home.
== END 2020-11-24 06:35 | disposition home or self-care (01) ==
PROVIDERS: PCP Family Medicine; Visit Provider Ophthalmology
PROC: (CPT 66984; principal; 2020-11-24 07:30)
DX: H25.11 Age-related nuclear cataract, right eye (principal); E11.40 Type 2 diabetes mellitus with diabetic neuropathy, unspecified; I10 Essential (primary) hypertension
CPT/HCPCS: 66984; V2632

== ENCOUNTER 2020-11-24 11:39 | Outpatient (CLI) | payer BC, SELFPAY ==
--- NOTE | 2020-11-24 11:30 | DI.RAD_ITS ---
Exam(s) XR SHOULDER RT COMPLETE 2+V EXAM: XR SHOULDER RT COMPLETE 2+V CLINICAL HISTORY: Prox biceps rupture. TECHNIQUE: 2D digital imaging was performed. COMPARISON: No exams were available for comparison FINDINGS: BONES: No acute fracture is present. No bony destructive lesion is seen. JOINTS: No dislocation present. There are hypertrophic changes seen at the acromioclavicular joint. The glenohumeral joint is well maintained. SOFT TISSUE: Normal. IMPRESSION: Degenerative changes of the right AC joint. DATA REPOSITORY: RADIATION DOSE DELIVERED:
== END 2020-11-24 11:40 | disposition home or self-care (01) ==
LOC: DIORS 11:39
PROVIDERS: PCP Family Medicine; Visit Provider Student in an Organized Health Care Education/Training Program
DX: M19.011 Primary osteoarthritis, right shoulder; S46.211A Strain of muscle, fascia and tendon of other parts of biceps, right arm, initial encounter
CPT/HCPCS: 73030

== ENCOUNTER 2020-12-14 10:32 | Outpatient (REF) | payer BC, SELFPAY ==
[2020-12-14 16:10] LABS: ALT 37 U/L (16-63); AST 22 U/L (15-37); Albumin 3.8 g/dL (3.4-5.0); Alkaline Phosphatase 116 U/L (46-116); Anion Gap 5.8 mmol/L (3-11); BUN 12 mg/dL (7-18); CO2 34.2 mmol/L (21.0-32.0); Chloride 104 mmol/L (98-107); Glucose 75 mg/dL (74-106); Sodium 144 mmol/L (136-145); Total Protein 7.1 g/dL (6.4-8.2)
[2020-12-14 16:14] LABS: Calculated LDL 140 mg/dL (<100); Cholesterol 199 mg/dL (<200); HDL Cholesterol 42 mg/dL (40-60); Triglyceride 87 mg/dL (<150)
[2020-12-14 16:32] LABS: Abs Immature Grans 0.15 10^3/uL (0.0-0.06); Absolute Eosinophil Count 0.99 10^3/uL (0.0-0.7); Absolute Lymphocyte Count 2.05 10^3/uL (1.2-3.4); Absolute Neutrophil Count 10.79 10^3/uL (1.2-6.7); Basophils % 0.4; Eosinophils % 6.3; HCT 50.1 % (40.0-50.0); MCH 28.1 pg (27.0-33.0); MCHC 31.9 % (32.0-36.0); MPV 11.7 fL (8.0-11.0); Monocytes % 10.8; Neutrophils % 68.5; Nucleated RBC 0 %; Platelet Count 260 10^3/uL (130-400); RBC 5.69 10^6/uL (4.36-5.78); RDW 13.3 % (11.8-14.1); RDW-SD 43.3 fL; WBC 15.75 10^3/uL (4.4-10.8)
[2020-12-14 16:35] LABS: Vitamin D 25 Total 36.4 ng/mL (30-100)
[2020-12-14 16:41] LABS: Absolute Basophil Count 0.06 10^3/uL (0.0-0.2)
[2020-12-14 17:18] LABS: Diff Comment Diff Reviewed; RBC Morphology Normal
[2020-12-23 17:48] LABS: Testosterone, Total 418 ng/dL (240-950)
== END 2020-12-14 10:33 | disposition home or self-care (01) ==
LOC: NCHCN 10:32
PROVIDERS: Naturopath; PCP Family Medicine; Visit Provider Nurse Practitioner Community Health
DX: E29.1 Testicular hypofunction (principal); E55.9 Vitamin D deficiency, unspecified; E78.5 Hyperlipidemia, unspecified; E11.65 Type 2 diabetes mellitus with hyperglycemia
CPT/HCPCS: 80053; 80061; 82306; 84402; 84403; 82670; 85025

== ENCOUNTER 2020-12-15 03:46 | Outpatient (CLI) | payer OTHER, SELFPAY ==
--- NOTE | 2020-12-15 16:35 | DI.MRI_ITS ---
Exam(s) MR UPPER JOINT RT WO EXAM: MR UPPER JOINT RT WO CLINICAL HISTORY: Long head biceps rupture,proximal,s46.211a,strain,injury TECHNIQUE: Multiplanar multisequence MRI of the shoulder was performed. COMPARISON: CR XR SHOULDER RT COMPLETE 2+V from 11/24/2020 FINDINGS: MARROW:There is no evidence of fracture, Hill-Sachs deformity, nor ominous osseous lesions. No eviden ce of bony Bankart lesion ROTATOR CUFF MECHANISM: AC JOINT/ACROMIUM: There are moderate degenerative changes in the AC joint.. There is no evidence of os acromiale. Supraspinatus: Intact. No evidence of tear nor muscle atrophy. Infraspinatus: Intact. No evidence of tear nor muscle atrophy. Teres Minor: Intact. No evidence of tear nor muscle atrophy. Subscapularis/anterior cuff: There is abnormal signal in the multi pen 8 insertional tendons anterior to the lesser tuberosity. Consistent with partial tearing. BICEPS TENDON: Significantly attenuated-torn. Absent from the intertubercular groove. Additional ax ial images were performed lower down in the upper arm and reveal significant signal abnormality in th e biceps. LABRUM: There is signal abnormality in the superior labrum posterior to the biceps insertion consiste nt with SLAP tear. This or. Also some tearing evident at the anterosuperior labrum. Lower anterior labrum appears intact. Posterior labrum appears intact. Inferior labrum appears intact. There is no evidence of paralabral cyst. The inferior glenohumeral ligament is intact. GLENOHUMERAL JOINT: No prominent joint effusion although there is some fluid in the medial subcoracoi d recess. No evidence of loose intra-articular body. No osteophytes. No degenerative subarticular cysts. QUADRILATERAL SPACE: No evidence of mass in the region of the axillary nerve and dorsal circumflex hu meral vessels. Visualized triceps muscle at this level appears unremarkable. IMPRESSION: 1. There is high-grade tear of the biceps tendon and there is also a SLAP labral tear as well as an e lement of tearing of the anterosuperior labrum. Posterior labrum and lower half of the anterior labr um as well as the inferior labrum appear intact. 2. There is partial tearing of the multipennate insertional fibers of the subscapularis/anterior cuff , this just anterior to the lesser tuberosity. This is related to the high-grade biceps tear in this region. There is no significant tearing of the other muscular components of the rotator cuff mechan ism, despite some degenerative change in the AC joint. 3. No obvious degenerative changes in the glenohumeral joint. No prominent joint effusion or loose i ntra-articular body. Mild fluid is noted in the subcoracoid recess. 4. Additional axial sequences lower down in the upper arm above the elbow level appear to have been performed and reveal abnormal signal in the biceps at this level. If clinically indicated MRI scan o f the elbow can be performed to determine if there is significant injury of the biceps tendon distall y. DATA REPOSITORY:
== END 2020-12-15 04:06 ==
PROVIDERS: PCP Family Medicine; Visit Provider Student in an Organized Health Care Education/Training Program
DX: S46.111A Strain of muscle, fascia and tendon of long head of biceps, right arm, initial encounter (principal); M19.011 Primary osteoarthritis, right shoulder; S43.431A Superior glenoid labrum lesion of right shoulder, initial encounter; X58.XXXA Exposure to other specified factors, initial encounter
CPT/HCPCS: 73221

== ENCOUNTER 2021-06-08 02:45 | Outpatient (CLI) | payer BC, SELFPAY ==
[2021-06-08] MEDS: Inhaler, Assist Device 1 EACH MC (12:11)
[2021-06-08] MEDS: Albuterol HFA 18 GM 200 PUFF INH IH (12:11)
--- NOTE | 2021-06-08 15:31 | W.PFT ---
Date of service: 06/08/21 Time of Service: 10:12 Pulmonary Function Test Result Requesting Provider Emmett Hinds Indications: Dyspnea Interpretation Spirometry: There is no airflow limitation. There is no significant bronchodilator effect. Lung Volumes: Lung volumes are normal. Diffusion Capacity: Normal diffusion Airway Pressure: Normal airways resistance Impression Normal pulmonary function testing Clinical Correlation therefore is recommended.
== END 2021-06-08 02:46 | disposition home or self-care (01) ==
LOC: RT 02:45
PROVIDERS: PCP Family Medicine; Visit Provider Family Medicine
DX: R06.09 Other forms of dyspnea (principal); R05.8 Other specified cough; Z77.120 Contact with and (suspected) exposure to mold (toxic)
CPT/HCPCS: 94060; 94726; 94729

== ENCOUNTER 2021-08-23 02:02 | Outpatient (CLI) | payer OTHER, SELFPAY ==
--- NOTE | 2021-08-23 08:00 | DI.MRI_ITS ---
Exam(s) MR UPPER JOINT RT WO CLINICAL HISTORY: R SHOULDER PAIN,ROTATOR CUFF TEAR,BURSITIS,M75.101,M75.51. TECHNIQUE: Multiplanar multisequence MRI was performed. COMPARISON: None FINDINGS: MR examination of the shoulder was performed according to the usual protocol. There is no significant effusion of the glenohumeral joint. Minimal fluid in the subacromial subdelt oid bursa. Bones and labrum: There are prominent hypertrophic changes and some joint fluid at the acromioclavicu lar joint and there is narrowing of the acromial outlet and deformity of superior aspect of supraspin atus particular in the region of the myotendinous junction. There is poor visualization of the glenoid labrum, however there is some abnormal signal in superior labrum which could represent a tear. Rotator cuff: There is abnormal signal in supraspinatus, subscapularis, and infraspinatus tendons co nsistent with tendinosis. There are a couple of a tiny apparent intrasubstance tears of the [place] att achment region of the supraspinatus tendon. No full-thickness tear or retracted tear seen.. Rotator interval structures are unremarkable with no evidence of a tear. Biceps tendon and anchor: Biceps tendon and anchor are not ideally visualized due to motion. Biceps tendon appears to be normally positioned. There may be some abnormal signal in biceps tendon and anc hor consistent with tendinosis but there is no gross evidence of tear. IMPRESSION: Rotator cuff tendinosis, no significant full-thickness tear or retracted tear seen. Additional findings as described above. Study was somewhat limited due to motion artifact. DATA REPOSITORY:
== END 2021-08-23 02:22 ==
PROVIDERS: PCP Family Medicine; Visit Provider Student in an Organized Health Care Education/Training Program
DX: M25.511 Pain in right shoulder (principal); M75.22 Bicipital tendinitis, left shoulder; M75.81 Other shoulder lesions, right shoulder
CPT/HCPCS: 73221

== ENCOUNTER 2021-11-16 20:56 | Outpatient (REF) | payer BC, SELFPAY ==
[2021-11-16 21:08] LABS: COMMENT (LAB VIEW ONLY) 90.77 mg/dL
== END 2021-11-16 20:57 | disposition home or self-care (01) ==
LOC: NCHCN 20:56
PROVIDERS: PCP Family Medicine; Visit Provider Family Medicine
DX: E11.65 Type 2 diabetes mellitus with hyperglycemia (principal)
CPT/HCPCS: 82043; 82570

== ENCOUNTER 2022-03-08 13:56 | Outpatient (REF) | payer BC, SELFPAY ==
[2022-03-08 15:11] LABS: Hemoglobin A1C 7.8 % (<5.7)
[2022-03-08 15:13] LABS: Calculated LDL 136 mg/dL (<100); Cholesterol 186 mg/dL (<200); HDL Cholesterol 39 mg/dL (40-60); Triglyceride 58 mg/dL (<150)
[2022-03-26 16:06] LABS: Rabies Antibody Endpoint 1.5 IU/mL
== END 2022-03-08 13:57 | disposition home or self-care (01) ==
LOC: NCHCN 13:56
PROVIDERS: PCP Family Medicine; Visit Provider Family Medicine
DX: Z20.3 Contact with and (suspected) exposure to rabies (principal); E11.65 Type 2 diabetes mellitus with hyperglycemia; E78.5 Hyperlipidemia, unspecified
CPT/HCPCS: 80061; 86317; 83036

== ENCOUNTER → 2022-03-22 11:23 | Outpatient (CLI) | payer BC, SELFPAY ==
--- NOTE | 2022-03-22 | DI.MRI_ITS ---
Exam(s) MR LOWER JOINT LT WO EXAM: MR LOWER JOINT LT WO CLINICAL HISTORY: SWELLING LEFT LEG M79.89 LEFT CALF PAIN M79.662 HX BICEP TENDON RUPTURE,. TECHNIQUE: Multiplanar multisequence MRI was performed. COMPARISON: No exams were available for comparison FINDINGS: MR examination of the ankle was performed according to the usual protocol. There is nonspecific mild soft tissue edema of the lower calf. . Abnormal signal is also noted in the lateral and posterior aspect of the talar dome with slight de formity of the articular surface, the affected portion of the talar dome is about 7 x 14 millimeters in size, probable osteochondritis dissecans. There also appear to be significant degenerative change of the sub talar articulations with signal abnormality in the calcaneus and talus adjacent to php magento developer ior subtalar joint . No significant ligamentous abnormality of the joints of the ankle identified. The tendons of the ank le appear intact with the exception of the flexor hallucis longus tendon, which appears deformed by p rominent adjacent os trigonum. There may be minimal signal abnormality in flexor hallucis longus per iod no evidence of a tear period no mom muscular signal abnormality of the FHL. The FDL and tibialis posterior tendon appear normal. Achilles mechanism appears normal. IMPRESSION: Degenerative changes of subtalar articulations, particularly the posterior talocalcaneal joint. 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 Possible tendonitis secondary to impingement of flexor hallucis longus tendon on a prominent os bharati num. DATA REPOSITORY:
== END ==
PROVIDERS: PCP Family Medicine; Visit Provider Family Medicine
DX: M93.272 Osteochondritis dissecans, left ankle and joints of left foot (principal); M19.072 Primary osteoarthritis, left ankle and foot
CPT/HCPCS: 73721

== ENCOUNTER → 2022-04-07 15:51 | Outpatient (CLI) | payer OTHER, BC, SELFPAY ==
--- NOTE | 2022-04-07 16:45 | DI.RAD_ITS ---
Exam(s) XR FOREARM LT EXAM: XR FOREARM LT CLINICAL HISTORY: evaluate for fx. TECHNIQUE: 2D digital imaging was performed. COMPARISON: No exams were available for comparison FINDINGS: Two views: There is prominent soft tissue swelling over the dorsal aspect of the forearm. No radiopaque foreign body. No evidence of fracture. No elbow joint effusion. No swelling of the olecranon bursa. No f ractures of the radius and ulna seen. IMPRESSION: Soft tissue swelling dorsally. No fractures. No radiopaque foreign body. DATA REPOSITORY: RADIATION DOSE DELIVERED:
--- NOTE | 2022-04-07 17:11 | DI.VRAD_ITS ---
PROCEDURE INFORMATION: Exam: XR Left Forearm Exam date and time: 04/07/2022 4:52 PM Age: 67 years old Clinical indication: Pain; Lower or forearm; Left TECHNIQUE: Imaging protocol: Radiologic exam of the Left forearm. Views: 2 views. COMPARISON: CR LEFT HAND COMPLETE 08/21/2017 3:40 PM FINDINGS: Bones/joints: Normal. Soft tissues: Dorsal soft tissue edema and swelling IMPRESSION: No fracture identified. Dictated and Authenticated by: Lina Lamar MD. Ordering:HERNANDEZ Roblero MD
== END ==
PROVIDERS: PCP Family Medicine; Visit Provider Nurse Practitioner Family
DX: M79.632 Pain in left forearm (principal); M79.89 Other specified soft tissue disorders
CPT/HCPCS: 73090

== ENCOUNTER 2022-07-10 13:45 | Outpatient (REF) | payer MEDICARE, BC, SELFPAY ==
[2022-07-10 15:39] LABS: Iron 64 ug/dL (65-175); Total Iron Binding Capacity 315 ug/dL (250-450)
[2022-07-10 15:54] LABS: Ferritin 496 ng/mL (26-388); TSH (W/Ref FT4) 1.41 uIU/mL (0.36-3.74)
[2022-07-11 10:09] LABS: Lyme Ab w Rflx to Lyme Confirm Negative (Negative)
[2022-07-13 15:25] LABS: Anaplasma phagocytophilum Negative (Negative); B. miyamotoi PCR Negative (Negative); Babesia divergens/MO-1 Negative (Negative); Babesia duncani Negative (Negative); Babesia microti Negative (Negative); Ehrlichia chaffeensis Negative (Negative); Ehrlichia ewingii/canis Negative (Negative); Ehrlichia muris eauclairensis Negative (Negative)
== END 2022-07-10 13:46 | disposition home or self-care (01) ==
LOC: NCHCN 13:45
PROVIDERS: PCP Family Medicine; Visit Provider Family Medicine
DX: E11.9 Type 2 diabetes mellitus without complications (principal); M25.50 Pain in unspecified joint
CPT/HCPCS: 87798; 82728; 83540; 83550; 84443; 86618

== ENCOUNTER 2022-08-20 03:02 | Outpatient (CLI) | payer MEDICARE, SELFPAY ==
[2022-08-20 14:44] LABS: Absolute Basophil Count 0.04 10^3/uL (0.0-0.2); Absolute Eosinophil Count 0.71 10^3/uL (0.0-0.7); Absolute Lymphocyte Count 2.24 10^3/uL (1.2-3.4); Absolute Monocyte Count 0.87 10^3/uL (0.1-0.8); Basophils % 0.4; Eosinophils % 6.4; HGB 13.2 g/dL (13.5-17.5); Immature Grans % 1.8; Lymphocytes % 20.2; MCH 28.3 pg (27.0-33.0); MCV 86 fL (80-95); MPV 10.1 fL (8.0-11.0); Monocytes % 7.8; Neutrophils % 63.4; Platelet Count 334 10^3/uL (130-400); RBC 4.67 10^6/uL (4.36-5.78); RDW 14.4 % (11.8-14.1); RDW-SD 43.3 fL; WBC 11.11 10^3/uL (4.4-10.8)
[2022-08-20 14:45] LABS: Absolute Neutrophil Count 7.04 10^3/uL (1.2-6.7)
[2022-08-20 14:46] LABS: ESR 4 mm/hr (0-20)
[2022-08-20 15:07] LABS: Hemoglobin A1C 7.4 % (<5.7)
[2022-08-20 15:10] LABS: C-Reactive Protein 0.51 mg/dL (0.0-0.3)
[2022-08-20 21:38] LABS: Rheumatoid Factor <8.6 IU/mL (<12.0)
[2022-08-21 09:16] LABS: Cyclic Citrullinated Peptide <2.5 U/mL (<5.0)
[2022-08-21 10:20] LABS: Lyme Ab w Rflx to Lyme Confirm Negative (Negative)
[2022-08-22 15:53] LABS: ANA Interpretation Positive (Negative); ANA Titer Pattern 1:80 Speckled
[2022-08-23 18:32] LABS: Anaplasma phagocytophilum Negative (Negative); B. miyamotoi PCR Negative (Negative); Babesia divergens/MO-1 Negative (Negative); Babesia duncani Negative (Negative); Babesia microti Negative (Negative); Ehrlichia chaffeensis Negative (Negative); Ehrlichia ewingii/canis Negative (Negative); Ehrlichia muris eauclairensis Negative (Negative)
== END 2022-08-20 03:03 | disposition home or self-care (01) ==
PROVIDERS: PCP Family Medicine; Visit Provider Student in an Organized Health Care Education/Training Program
DX: M75.101 Unspecified rotator cuff tear or rupture of right shoulder, not specified as traumatic (principal)
CPT/HCPCS: 36415; 85652; 86200; 87798; 83036; 85025; 86038; 86140; 86431; 86618

== ENCOUNTER 2022-08-23 00:31 | Outpatient (CLI) | payer MEDICARE, BC, SELFPAY ==
--- NOTE | 2022-08-23 06:45 | DI.MRI_ITS ---
Exam(s) MR UPPER JOINT RT WO EXAM: MR UPPER JOINT RT WO CLINICAL HISTORY: r shoulder pain,RT ROTATOR CUFF TEAR,BURSITIS,RUPTURE RT BICEPS TENDON. TECHNIQUE: Multiplanar multisequence MRI was performed. COMPARISON: Most recent plain films are dated 24 November 2020 FINDINGS: BONES: There is no fracture or contusion pattern. Red marrow reconversion. JOINTS:The acromioclavicular joint shows spurring and some high signal. Some impingement on the dist al supraspinatus muscle. The glenohumeral joint shows a minimal amount of fluid. TENDONS: Supraspinatus: Thickening. A few tiny areas of high signal, similar to prior Infraspinatus: Thickening. A few tiny high signal lesions, similar to prior. Subscapularis: Unremarkable. Teres Minor: Unremarkable. Biceps and [place]: Long head biceps tendon not seen or extremely thinned. MUSCLES: Unremarkable. GLENOID LABRUM: Tiny area of high signal at the superior labrum. Similar to prior. No paralabral cy st. SOFT TISSUES: Unremarkable. OTHER: Subacromial and subdeltoid bursae shows a small amount of fluid. . IMPRESSION: The biceps tendon is not visualized and presumed torn retracted. Thickening and with a few tiny high signal areas in the supraspinatus and infraspinatus tendons, cons istent with tendinosis, similar to prior. stable there is stable area of high signal in superior labrum. DATA REPOSITORY:
== END 2022-08-23 00:51 ==
PROVIDERS: PCP Family Medicine; Visit Provider Student in an Organized Health Care Education/Training Program
DX: M75.101 Unspecified rotator cuff tear or rupture of right shoulder, not specified as traumatic (principal); M75.51 Bursitis of right shoulder; S46.211A Strain of muscle, fascia and tendon of other parts of biceps, right arm, initial encounter
CPT/HCPCS: 73221

== ENCOUNTER 2023-04-08 17:30 | Outpatient (REF) | payer MEDICARE, BC, SELFPAY ==
[2023-04-09 16:23] LABS: Anion Gap 7.3 mmol/L (3-11); BUN 32 mg/dL (7-18); CO2 28.7 mmol/L (21.0-32.0); CREATININE 1.2 mg/dL (0.70-1.30); Calcium 9.6 mg/dL (8.5-10.1); Chloride 105 mmol/L (98-107); Glucose 105 mg/dL (74-106); Potassium 4.4 mmol/L (3.5-5.1); Sodium 141 mmol/L (136-145)
[2023-04-09 16:53] LABS: COMMENT (LAB VIEW ONLY) 52.55 mg/dL
== END 2023-04-08 17:31 | disposition home or self-care (01) ==
LOC: NCHCN 17:30
PROVIDERS: PCP Family Medicine; Visit Provider Family Medicine
DX: E11.9 Type 2 diabetes mellitus without complications (principal); I10 Essential (primary) hypertension
CPT/HCPCS: 80048; 82043; 82570

== ENCOUNTER 2023-06-23 11:51 | Emergency (ER) | payer MEDICARE, BC, SELFPAY ==
[2023-06-23 11:56] VITALS: PULSE 58; RESP 18; TEMP 37.1; O2SAT 97
[2023-06-23 13:20] LABS: Abs Immature Grans 0.08 10^3/uL (0.0-0.06); Absolute Basophil Count 0.07 10^3/uL (0.0-0.2); Absolute Eosinophil Count 1.63 10^3/uL (0.0-0.7); Absolute Lymphocyte Count 1.41 10^3/uL (1.2-3.4); Absolute Monocyte Count 0.83 10^3/uL (0.1-0.8); Absolute Neutrophil Count 7.53 10^3/uL (1.2-6.7); Basophils % 0.6; Eosinophils % 14.1; HCT 45.8 % (40.0-50.0); HGB 15.3 g/dL (13.5-17.5); Immature Grans % 0.7; Lymphocytes % 12.2; MCH 27.9 pg (27.0-33.0); MCHC 33.4 % (32.0-36.0); MCV 83 fL (80-95); MPV 10.2 fL (8.0-11.0); Monocytes % 7.2; Neutrophils % 65.2; Platelet Count 252 10^3/uL (130-400); RBC 5.49 10^6/uL (4.36-5.78); RDW 13.4 % (11.8-14.1); RDW-SD 41.3 fL; WBC 11.55 10^3/uL (4.4-10.8)
[2023-06-23 13:40] LABS: ALT 29 U/L (16-63); AST 18 U/L (15-37); Albumin 3.6 g/dL (3.4-5.0); Alkaline Phosphatase 92 U/L (46-116); Anion Gap 9.2 mmol/L (3-11); BUN 30 mg/dL (7-18); Bilirubin, Total 0.6 mg/dL (0.2-1.0); CO2 25.8 mmol/L (21.0-32.0); CREATININE 1.1 mg/dL (0.70-1.30); Chloride 106 mmol/L (98-107); Estimated GFR 74.04 (mL/min/1.73m2); Glucose 172 mg/dL (74-106); Potassium 4.5 mmol/L (3.5-5.1); Sodium 141 mmol/L (136-145)
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
== END 2023-06-23 14:38 | disposition home or self-care (01) ==
PROVIDERS: Emergency Provider Nurse Practitioner Family; PCP Family Medicine
DX: E11.649 Type 2 diabetes mellitus with hypoglycemia without coma (principal)
CPT/HCPCS: 36416; 80053; 82962; 99283; 85025; J1815

== ENCOUNTER 2023-08-15 15:37 | Outpatient (REF) | payer MEDICARE, BC, SELFPAY ==
[2023-08-15 21:57] LABS: TSH (W/Ref FT4) 2.02 uIU/mL (0.36-3.74); Vitamin B12 487 pg/mL (193-986)
== END 2023-08-15 15:38 | disposition home or self-care (01) ==
LOC: NCHCN 15:37
PROVIDERS: PCP Family Medicine; Visit Provider Family Medicine
DX: E11.40 Type 2 diabetes mellitus with diabetic neuropathy, unspecified (principal)
CPT/HCPCS: 82607; 84443

== ENCOUNTER 2023-08-21 16:42 | Emergency (ER) | payer MEDICARE, BC, SELFPAY ==
[2023-08-21 16:53] VITALS: BP 142/78; PULSE 65; RESP 20; TEMP 37.1; O2SAT 98
[2023-08-21 16:57] VITALS: BP 142/78; PULSE 65; RESP 20; TEMP 37.1; O2SAT 98
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
[2023-08-21] MEDS: Fluorescein STRIPS 100/BOX 1 MG OP (17:23)
[2023-08-21] MEDS: Tetracaine 0.5% 4 ML BTL OP (17:23)
[2023-08-21 18:15] VITALS: BP 172/88; PULSE 58; RESP 16; O2SAT 98
[2023-08-21] MEDS: Erythromycin Ophth Oint 3.5 GM TUBE OS (18:55)
[2023-08-21 19:29] VITALS: BP 148/72; PULSE 80; RESP 16; TEMP 36.6; O2SAT 98
== END 2023-08-21 19:31 | disposition home or self-care (01) ==
PROVIDERS: Emergency Provider Physician Assistant; PCP Family Medicine
DX: S05.02XA Injury of conjunctiva and corneal abrasion without foreign body, left eye, initial encounter (principal); H16.002 Unspecified corneal ulcer, left eye; H57.12 Ocular pain, left eye; Y93.H2 Activity, gardening and landscaping; W22.8XXA Striking against or struck by other objects, initial encounter
CPT/HCPCS: 99283

== ENCOUNTER 2023-10-10 15:31 | Outpatient (REF) | payer MEDICARE, BC, SELFPAY ==
[2023-10-10 21:01] LABS: Abs Immature Grans 0.04 10^3/uL (0.0-0.06); Absolute Basophil Count 0.05 10^3/uL (0.0-0.2); Absolute Eosinophil Count 0.73 10^3/uL (0.0-0.7); Absolute Lymphocyte Count 1.64 10^3/uL (1.2-3.4); Absolute Monocyte Count 0.83 10^3/uL (0.1-0.8); Absolute Neutrophil Count 5.53 10^3/uL (1.2-6.7); Basophils % 0.6 %; Eosinophils % 8.3 %; HGB 16.1 g/dL (13.5-17.5); Immature Grans % 0.5 %; Lymphocytes % 18.6 %; MCH 28.5 pg (27.0-33.0); MCHC 32.9 % (32.0-36.0); MCV 87 fL (80-95); MPV 10.9 fL (8.0-11.0); Monocytes % 9.4 %; Neutrophils % 62.6 %; Platelet Count 236 10^3/uL (130-400); RBC 5.65 10^6/uL (4.36-5.78); RDW 13.3 % (11.8-14.1); RDW-SD 42.3 fL; WBC 8.82 10^3/uL (4.4-10.8)
[2023-10-10 21:11] LABS: ALT 30 U/L (16-63); AST 26 U/L (15-37); Alkaline Phosphatase 100 U/L (46-116); Anion Gap 6.8 mmol/L (3-11); BUN 27 mg/dL (7-18); Bilirubin, Total 0.7 mg/dL (0.2-1.0); CO2 30.2 mmol/L (21.0-32.0); CREATININE 1.3 mg/dL (0.70-1.30); Calcium 9.2 mg/dL (8.5-10.1); Chloride 105 mmol/L (98-107); Estimated GFR 60.59 (mL/min/1.73m2); Glucose 161 mg/dL (74-106); Lipase 30 U/L (16-77); Potassium 4.5 mmol/L (3.5-5.1); Sodium 142 mmol/L (136-145); Total Protein 7.7 g/dL (6.4-8.2)
== END 2023-10-10 15:32 | disposition home or self-care (01) ==
LOC: NCHCN 15:31
PROVIDERS: PCP Family Medicine; Visit Provider Family Medicine
DX: R10.13 Epigastric pain (principal)
CPT/HCPCS: 80053; 83690; 85025

== ENCOUNTER → 2023-10-17 00:38 | Outpatient (CLI) | payer MEDICARE, BC, SELFPAY ==
--- NOTE | 2023-10-17 | DI.US_ITS ---
Exam(s) US ABDOMEN LIMITED EXAM: US ABDOMEN LIMITED CLINICAL HISTORY: EPIGASTRIC PAIN R10.13 EVAL LIVER GALLBLADDER AND PANCREAS TECHNIQUE: Ultrasound abdomen performed using standard protocol. COMPARISON: US ABDOMEN ULTRASOUND (P) from 12/29/2015 FINDINGS: LIVER: Normal size. Normalechogenicity. No focal liver lesions are seen.. GALLBLADDER: No evidence of cholelithiasis. No evidence of wall thickening. No pericholecystic fluid identified. RAMOS'S SIGN: Negative. BILIARY SYSTEM: No intrahepatic or extrahepatic biliary ductal dilation. RIGHT KIDNEY: Normal size. No evidence of renal calculi. No evidence of hydronephrosis. No suspicious renal mass. No cyst identified. PANCREAS: Normal where visualized. ABDOMINAL AORTA AND IVC: Visualized portions normal caliber. ASCITES: None seen. IMPRESSION: Normal sonographic appearance of the right upper quadrant. DATA REPOSITORY:
== END ==
PROVIDERS: PCP Family Medicine; Visit Provider Family Medicine
DX: R10.13 Epigastric pain (principal)
CPT/HCPCS: 76705

== ENCOUNTER 2024-07-29 21:53 | Outpatient (REF) | payer MEDICARE, BC, SELFPAY ==
[2024-07-29 21:56] LABS: COMMENT (LAB VIEW ONLY) 217.79 mg/dL; Microalb ug/mg Crea 14.7 ug/mg Cr
== END 2024-07-29 21:54 | disposition home or self-care (01) ==
LOC: NCHCN 21:53
PROVIDERS: PCP Family Medicine; Visit Provider Family Medicine
DX: E11.9 Type 2 diabetes mellitus without complications (principal)
CPT/HCPCS: 82043; 82570

== ENCOUNTER 2024-08-18 02:25 | Outpatient (CLI) | payer MEDICARE, BC, SELFPAY ==
--- NOTE | 2024-08-18 | DI.US_ITS ---
APPROVED REPORT EXAM: Comprehensive 2D, Doppler, and color-flow Echocardiogram Patient Location: Out-Patient Coat Feller: Miko Kunz RDCS (AE) Indications: Dyspnea Other Information Study Quality: Adequate Conclusion Normal left ventricular wall thickness and chamber size. Ejection fraction is 60%. Wall motion is n ormal Normal right ventricular size and function Both atria are normal in size Aortic valve is sclerotic and trileaflet without stenosis or regurgitation Mitral annular calcification Estimated right ventricular systolic pressure is 35 mmHg Wall motion Left Ventricle The left ventricle is normal size. The left ventricular systolic function is normal. The left ventric ular ejection fraction is within the normal range. There is normal left ventricular wall thickness. T here is normal LV segmental wall motion. There is no ventricular septal defect visualized. LVEF is 60 %. Right Ventricle The right ventricle is normal size. The right ventricular systolic function is normal. Atria The left atrium size is normal. The right atrium size is normal. The interatrial septum is intact wit h no evidence for an atrial septal defect. Aortic Valve The aortic valve is sclerotic. There is no aortic valvular stenosis. No aortic regurgitation is prese nt. Mitral Valve Moderate mitral annular calcification. No evidence of mitral valve stenosis. Trace mitral regurgitati on. Tricuspid Valve The tricuspid valve is normal in structure. There is no tricuspid valve stenosis. Trace tricuspid reg urgitation. The RVSP is 35 mmHg. Pulmonic Valve The pulmonary valve is normal in structure. There is no pulmonic valvular stenosis. There is no pulmo devendra valvular regurgitation. Great Vessels The aortic root is normal in size. Ascending aorta is not well visualized. IVC is normal in size and collapses >50% with inspiration. Pericardium There is no pericardial effusion. 2D Dimensions IVSD d PLAX 1.10 cm M: 0.6-1.2 Ao Root d 2.88 cm M: 3.1 - 3.7 LVPW d PLAX 1.15 cm M: 0.6 - 1.2 LVID d PLAX 5.26 cm M: 4.2 - 5.8 LVDs 3.58 cm M: 2.5 - 4.0 LV EF Teichholz 59.8 % FS 32.04 % LV EDV (Teich) 133.2 mL LV ESV (Teich) 53.6 mL Stroke Vol Index (Teich) 35.54 M-Mode TAPSE 2.39 cm (M/F) >1.7 Auto EF LV EDV A4C 120.3 mL LV EDV A2C 86.7 mL LV EDV BP 104.9 mL LV ESV A4C 47.9 mL LV ESV A2C 34.4 mL LV ESV BP 40.9 mL LVEF(%) A4C 60.2 % LVEF(%) A2C 60.3 % LVEF(%) BP 61.0 % LV SV A4C 72.4 ml LV SV A2C 52.3 ml LV SV BP 64.0 ml LV CO A4C 4.0 L/min LV CO A2C 2.6 L/min LV CO BP 3.3 L/min HR A4C 55.39 BPM HR A2C 50.14 BPM LV EDV Index (BP) LA Volume LA Length A4C 6.4 cm LA Length A2C 4.7 cm LA Area A4C s 19.51 cm2 LA Area A2C s 10.24 cm2 LA Vol A4C A-L 50.38 mL LA Vol A2C A-L 18.90 mL LA Vol Biplane A-L 36.0 mL LA Vol/BSA A4C A-L LA Vol/BSA A2C A-L LA Vol/BSA BP A-L 16.1 mL/m2 LA Vol A4C MOD 47.9 mL LA Vol A2C MOD 18.2 mL LA Vol BP MOD 34.0 mL RA Volume RA Area A4C 13.4 cm2 RA ESV A4C (A-L) 30.9mL RA Vol/BSA A4C A-L RA Length A4C 4.9 cm RA ESV A4C (MOD) 30.3mL LV Diastology MV E' medial 0.078 (>0.07 m/s) MV E Vmax 1.50 (0.4-1.3 m/s) MV E/E' MED 19.20 (<14) MV A Vmax 1.15 (0.4-1.3 m/s) MV E' lateral 0.078 (>0.1 m/s) E/A Ratio 1.3 MV E/E' LAT 19.11 (<14) MV E' Average 0.078 m/s MV E/E'(average) 19.15 Aortic Valve AoV Vmax 1.65 m/s LVOT Vmax 1.20 m/s AoV Peak Grad 11.0 mmHg LVOT Peak Grad 5.7 mmHg AoV Area (Vmax) 1.79 cm2 LVOT VTI 0.289 m AoV VTI 0.385 m LVOT Mean Grad 3.2 mmHg AoV Mean Henok. 1.07 m/s LVOT SV 71.61 mL AoV Mean Grad 5.4 mmHg LVOT Diam s 1.75 cm AoV Area (VTI) 1.86 cm2 AV Regurg Peak Gr. 10.96 mmHg Velocity Ratio 0.73 Mitral Valve MV DT 269 (160-240 msec) Pulmonary Valve PV Vmax 1.15 (0.5-1.5 m/s) RVOT Vmax 1.01 m/s PV Peak Grad 5.3 mmHg RVOT Peak Gr. 4.1 mmHg PV Mean Henok 0.78 m/s RVOT VTI 0.233 m PV Mean Grad 2.8 mmHg RVOT Mean Gr. 2.3 mmHg Tricuspid Valve RA Pressure 3.00 mmHg TR Vmax 2.81 m/s TV S' 0.17 m/s TR Peak Grad 31.6 mmHg RVSP (TR) 34.6 mmHg
== END 2024-08-18 02:45 ==
PROVIDERS: PCP Family Medicine; Visit Provider Internal Medicine Cardiovascular Disease
DX: R06.00 Dyspnea, unspecified (principal); I35.1 Nonrheumatic aortic (valve) insufficiency
CPT/HCPCS: 93306

== ENCOUNTER 2024-11-25 08:47 | Outpatient (REF) | payer MEDICARE, BC, SELFPAY ==
[2024-11-25 15:39] LABS: Hemoglobin A1C 6.6 % (<5.7)
[2024-11-25 15:50] LABS: ALT 29 U/L (16-63); AST 23 U/L (15-37); Albumin 3.6 g/dL (3.4-5.0); Alkaline Phosphatase 84 U/L (46-116); Anion Gap 6.0 mmol/L (3-11); BUN 22 mg/dL (7-18); Bilirubin, Total 0.9 mg/dL (0.2-1.0); CO2 30.0 mmol/L (21.0-32.0); Calcium 8.9 mg/dL (8.5-10.1); Calculated LDL 150 mg/dL (<100); Chloride 104 mmol/L (98-107); Cholesterol 208 mg/dL (<200); Estimated GFR 93.61 (mL/min/1.73m2); Glucose 174 mg/dL (74-106); HDL Cholesterol 44 mg/dL (>or=40); Potassium 4.2 mmol/L (3.5-5.1); Sodium 140 mmol/L (136-145); Total Protein 7.0 g/dL (6.4-8.2); Triglyceride 70 mg/dL (<150)
== END 2024-11-25 08:48 | disposition home or self-care (01) ==
LOC: NCHCN 08:47
PROVIDERS: PCP Family Medicine; Visit Provider Family Medicine
DX: E78.5 Hyperlipidemia, unspecified (principal); E11.9 Type 2 diabetes mellitus without complications
CPT/HCPCS: 80053; 80061; 83036